=== PATIENT | female | born 1980 | race Caucasian/White ===

== ENCOUNTER → 2020-01-15 09:45 | Outpatient (CLI) | payer SELFPAY | LOC: MTDU 09:45 | PROVIDERS: PCP Family Medicine; Referring Provider Physician Assistant; Visit Provider Physician Assistant | DX: Z11.59 Encounter for screening for other viral diseases (principal) | CPT/HCPCS: 87635; 94799; U0003 ==

== ENCOUNTER 2021-04-29 11:08 | Emergency (ER) | payer MEDICAID, SELFPAY ==
[2021-04-29 11:09] VITALS: BP 149/103; PULSE 109; RESP 18; TEMP 36.8; O2SAT 95; BMI 32.8
--- NOTE | 2021-04-29 11:53 | EDS_ITS ---
HPI History of Present Illness Chief Complaint: Shortness of Breath Informant: patient Narrative Narrative: 40-year-old female history of asthma states that she tested positive for Covid yesterday at home. She states that she went to do a virtual visit with her primary care doctor and the triage nurse recommended she come to emergency. She is also brought her to parents up to emergency as well. She notes fever and a nonproductive cough. She has had some posttussive emesis and diarrhea. [facility] Medical History (Updated 04/29/21 @ 11:[address] Brent Beltran DO) Asthma Home Medications albuterol sulfate [Ventolin HFA] 2 puff INHALATION Q4H PRN PRN #1 inhaler 04/29/21 [Rx Last Taken Unknown] benzonatate 200 mg PO TID PRN PRN #30 capsule 04/29/21 [Rx Last Taken Unknown] dexamethasone 6 mg PO DAILY #7 tab 04/29/21 [Rx Last Taken Unknown] Allergy/AdvReac Type Severity Reaction Status Date / Time No Known Allergies Allergy Verified 04/29/21 11:11 Social History (Updated 04/29/21 @ 11:[address] Brent Beltran DO) current gender identity: female substance use type: does not use ROS ROS ED Constitutional Constitutional ED: Reports chills and fever(s); Denies weight loss Eyes Eyes: Denies change in vision or diplopia ENT ENT ED: Reports rhinorrhea; Denies ear pain or sore throat Cardiovascular Cardiovascular: Denies chest pain, orthopnea, palpitations or racing heartbeat Respiratory/Chest Respiratory/Chest: Reports cough and dyspnea; Denies orthopnea Gastrointestinal Gastrointestinal: Reports diarrhea, nausea and vomiting; Denies abdominal pain Genitourinary Genitourinary ED: Denies dysuria, hematuria or urinary frequency Musculoskeletal Musculoskeletal: Reports myalgias; Denies arthralgias Integumentary Denies abscess or rash Neurologic Neurologic: Reports headache(s); Denies weakness Psychiatric Psychiatric: Denies anxiety, depression, suicidal ideation or suicidal thoughts Endocrine Endocrinology: Denies polydipsia, polyphagia or polyuria Allergic/Immunologic Allergic/Immunologic ED: Denies mouth swelling, tongue swelling or urticaria EXAM Physical Exam Narrative Exam Narrative: Dry cough Const Vital Signs: 04/29/21 11:09 Temperature 98.3 F Temperature Source Temporal Pulse Rate 109 H Respiratory Rate 18 Blood Pressure 149/103 H Blood Pressure Mean 118 Pulse Ox 95 Oxygen Delivery Method Room Air Positive well nourished and well developed General Appearance ED: well developed HEENT Reports normocephalic, head/scalp atraumatic and moist mucous membranes; Denies TM's clear atraumatic Tympanic Membrane ED: Negative for TM's clear Eyes PERRL and EOMs intact bilaterally Neck no lymphadenopathy, supple and no JVD Resp normal respiratory effort and clear to auscultation bilaterally Cardio regular rate, regular rhythm and no murmurs GI normal to inspection, nondistended, normoactive bowel sounds, non-tender and non-distended Auscultation: normoactive bowel sounds Palpation: soft Back/Spine no CVA tenderness and normal ROM Extremity normal to inspection General Extremety ED: Negative for edema General Extremity: Negative for edema Neuro oriented x3 and CN's II-XII intact bilaterally Sensorium / Orientation: alert Motor Exam: strength 5/5 throughout Psych mental status grossly normal Mood & Affect: Negative for depressed or tearful Skin no rashes or lesions noted and no wounds MDM MDM MDM Narrative Medical decision making narrative: Patient clinically appears to be a well Covid patient. He is 95% on room air. She has no expiratory wheezing. She is not interested in monoclonal antibodies. She would like some Tessalon Perles and a new inhaler as she cannot find her other one. She would also probably benefit from some dexamethasone with her history of asthma. Discharge Plan Triage Chief Complaint: Shortness of Breath ED Provider: Brent Beltran Dx/Rx/DC Orders Clinical Impression: COVID-19, Asthma Instructions: Coronavirus Disease 2019 (COVID-19): Caring for Yourself or Others Prescriptions: New dexamethasone 6 MG tablet 6 mg PO DAILY Qty: 7 RF: 0 benzonatate [benzonatate] 100 MG capsule 200 mg PO TID PRN PRN (Reason: Cough) Qty: 30 RF: 0 albuterol sulfate [Ventolin HFA] 1 INHALER inhaler 2 puff inhalation Q4H PRN PRN (Reason: Wheezing) Qty: 1 RF: 0 Primary Care Provider: Ronald Headley Referrals: Ronald Headley MD [Primary Care Provider] - As Needed Disposition Disposition: Home, Self Care
[2021-04-29 12:13] VITALS: O2SAT 96
== END 2021-04-29 12:15 | disposition home or self-care (01) ==
LOC: ED 12:04
PROVIDERS: Emergency Provider Emergency Medicine; PCP Family Medicine
DX: U07.1 COVID-19 (principal); J45.909 Unspecified asthma, uncomplicated
CPT/HCPCS: 99282

== ENCOUNTER 2021-05-08 07:53 | Inpatient (IN) | payer MEDICAID, SELFPAY ==
[2021-05-08] VITALS (16 sets, daily range): BP systolic 116–164; BP diastolic 73–96; PULSE 53–120; RESP 18–95; TEMP 35.9–37.8; O2SAT 91–99; BMI 32.8; BMI 30.2
[2021-05-08 08:29] LABS: Absolute Neutrophil Count 8.3 X10^3/uL (2.0-7.7); Basophil# 0.02 X10^3/uL; Basophil% 0.2 % (0-1); Hematocrit 43.5 % (37-47); Hemoglobin 14.5 g/dL (12.0-15.0); Lymphocyte % 8.3 % (19-41); Mean Corp Hgb Conc 33.3 g/dL (32-36); Mean Corpuscular Hgb 28.8 pg (27.0-32.0); Mean Corpuscular Volume 86.3 fL (81-99); Mean Platelet Vol. 10.2 fl (6.2-12.0); Monocyte# 0.52 X10^3/uL; Monocyte% 5.4 % (0-10); NRBC Flagged by Analyzer 0 % (0-5); Neutrophil # 8.31 X10^3/uL (2.7-7.7); Neutrophil % 85.8 % (47-70); Platelet Count 261 K/mm3 (150-450); RBC Distribution Width CV 12.5 % (11.6-14.6); RBC Distribution Width SD 39.4 fl (35.1-43.9); Red Blood Count 5.04 M/mm3 (4.2-5.4); White Blood Count 9.7 K/mm3 (4.4-11.0)
[2021-05-08 08:45] LABS: Anion Gap 10 (5-15); BUN 20 mg/dL (7-18); BUN/Creat Ratio 23.3 RATIO (10-20); Calcium,Total 9.3 mg/dL (8.5-10.1); Chloride 105 mmol/L (98-107); Creatinine, Serum 0.86 mg/dL (0.55-1.02); EST Glomerular Filtration Rate 78 mL/min (>60); Est Glom Filt Rate - Afr Amer 94 mL/min (>60); Estimated Creatinine Clearance 84.56 ml/min; Glucose 118 mg/dL (74-106); Potassium 3.8 mmol/L (3.5-5.1); Sodium Level 139 mmol/L (136-145)
--- NOTE | 2021-05-08 08:57 | RAD_ITS ---
STUDY: X-RAY CHEST REASON FOR EXAM: Female, 40 years old. Cough and shortness of breath. Chest pain. Covid positive TECHNIQUE: Single AP portable view of the chest. COMPARISON: None. FINDINGS: EKG electrodes are seen. Bilateral patchy infiltrates worse at the left base. Infiltrates are also seen in the peripheral aspect of the right hemithorax. There is no demonstrated pleural abnormality. Normal size heart. Normal mediastinum and devi. Normal visualized pulmonary arteries. Normal visualized aortic arch and descending thoracic aorta. Normal visualized thoracic spine. Normal visualized ribs, clavicles, and shoulders. There is no demonstrated abnormality of the visualized soft tissue structures of the upper abdomen. RAD/Chest 1 View IMPRESSION: Bilateral pulmonary infiltrates worse at the left lung base. Infiltrates are also seen along the lateral aspect of the right hemithorax. Pneumonitis associated with Covid should be ruled out. Electronically Signed: John Apodaca MD at 9:23 EST , Service support ,
[2021-05-08 09:02] LABS: Lactic Acid 1.8 mmol/L (0.4-1.9)
--- NOTE | 2021-05-08 09:12 | CT_ITS ---
STUDY: CTA CHEST REASON FOR EXAM: Female, 40 years old. covid, CP RADIATION DOSAGE (If Supplied By Facility): CTDIvol = ( 16.17 ) mGy, DLP = ( 407.07 ) mGycm TECHNIQUE: The examination was performed with the intravenous administration of IV 100mL Isovue-370. Post-processing of the angiographic images was performed, with multiplanar reformation and 3D reconstruction. Individualized dose optimization techniques were used for this CT. COMPARISON: Comparison is made with prior chest radiograph done earlier today. FINDINGS: Small benign-appearing bilateral axillary lymph nodes. Normal enhancement of the main pulmonary artery and right and left pulmonary arteries. Normal enhancement of the bilateral peripheral pulmonary arteries. There is no demonstrated pulmonary embolism. Normal thoracic aorta and visualized great vessels. There is no demonstrated aortic dissection. Normal heart and pericardium. Normal mediastinum. Normal hilar regions. Normal visualized trachea and bronchi. The lungs are well expanded. There is evidence of diffuse bilateral pulmonary infiltrates worse in the posterior aspect of the right upper lobe as well as in both lower lobes. Normal pleura. Normal chest wall structures. Normal osseous structures. Normal visualized upper abdomen. CT/CTA Chest W/WO Contrast IMPRESSION: Diffuse bilateral pulmonary infiltrates. No evidence of pulmonary embolus. Electronically Signed: John Apodaca MD at 11:03 EST , Service support ,
--- NOTE | 2021-05-08 09:12 | EKG12_ITS ---
Test Reason : SOB Blood Pressure : / mmHG Vent. Rate : 097 BPM Atrial Rate : 097 BPM P-R Int : 150 ms QRS Dur : 080 ms QT Int : 400 ms P-R-T Axes : 057 027 038 degrees QTc Int : 508 ms Normal sinus rhythm Prolonged QT Abnormal ECG Confirmed by ANGELINA GALEANA, AFSHIN ([id number]), commissioning editor NGOZI THORPE ([id number]) on 05/10/2021 11:28:40 AM Referred By: CLAUDY Confirmed By:AFSHIN ALFARO MD
--- NOTE | 2021-05-08 09:20 | EDS_ITS ---
HPI History of Present Illness Chief Complaint: General Illness Informant: patient Onset/Context/Timing Onset: Days Context: Gradual Onset Current Severity: Moderate Maximum Severity: Moderate Narrative Narrative: Patient presents secondary to cough, shortness of breath, chest pain. She tested positive for Covid on April 28 and developed symptoms that same day. She does have a history of asthma. She has been using albuterol MDI inhaler along with Decadron, Tessalon Perles. Patient states her called the doctor this morning to get a refill on her medication but was advised that she go to the emergency room. She does report central chest pain that is heavy with occasional sharp pain. She is coughing up clear thick sputum. She is still having fevers into the 102 range. [facility] Medical History Asthma Home Medications albuterol sulfate [Ventolin HFA] 2 puff INHALATION Q4H PRN PRN #1 inhaler 04/29/21 [Rx Last Taken Unknown] benzonatate 200 mg PO TID PRN PRN #30 capsule 04/29/21 [Rx Last Taken Unknown] dexamethasone 6 mg PO DAILY #7 tab 04/29/21 [Rx Last Taken Unknown] Allergy/AdvReac Type Severity Reaction Status Date / Time No Known Allergies Allergy Verified 05/08/21 07:57 Social History Smoking Status: Unknown if ever smoked substance use type: does not use ROS ROS ED Constitutional Constitutional ED: Reports fever(s) Eyes Eyes: Denies blurry vision or change in vision ENT ENT ED: Denies rhinorrhea or sore throat Cardiovascular Cardiovascular: Reports chest pain, palpitations and racing heartbeat Respiratory/Chest Respiratory/Chest: Reports cough, dyspnea and sputum Gastrointestinal Gastrointestinal: Denies abdominal pain or vomiting Musculoskeletal Musculoskeletal: Reports myalgias Integumentary Denies rash Neurologic Neurologic: Reports weakness Psychiatric Psychiatric: Reports anxiety; Denies depression Endocrine Endocrinology: Denies polydipsia or polyuria Allergic/Immunologic Allergic/Immunologic ED: Denies urticaria EXAM Physical Exam Const Vital Signs: 05/08/21 07:55 05/08/21 08:37 05/08/21 08:42 Temperature 96.7 F L 96.7 F L Temperature Source Temporal Temporal Pulse Rate 53 L 53 L 93 Respiratory Rate 18 18 33 H Blood Pressure 129/85 H 129/85 H 116/86 H Blood Pressure Mean 99 99 96 Pulse Ox 91 91 91 Oxygen Delivery Method Room Air Room Air Room Air 05/08/21 08:43 05/08/21 09:18 05/08/21 10:18 Temperature 97 F L Temperature Source Temporal Pulse Rate 120 H 93 Respiratory Rate 33 H 38 H Blood Pressure 117/82 H 116/89 H Blood Pressure Mean 93 98 Pulse Ox 91 94 95 Oxygen Delivery Method Room Air 05/08/21 12:13 Temperature Temperature Source Pulse Rate 86 Respiratory Rate 38 H Blood Pressure 129/95 H Blood Pressure Mean 106 Pulse Ox 94 Oxygen Delivery Method Room Air Positive well nourished and well developed General Appearance ED: well developed Eyes PERRL and EOMs intact bilaterally Neck supple Chest Wall inspection of chest normal and palpation of chest normal Resp Auscultation: diminished lung sounds Cardio Rate: tachycardic GI non-tender Palpation: soft Extremity normal to inspection Neuro oriented x3 Sensorium / Orientation: alert Skin no rashes or lesions noted MDM MDM MDM Narrative Medical decision making narrative: Patient was placed on oxygen for comfort. EKG, lab work, CTA chest obtained. Lab Data Attestation: I reviewed the patient's lab results. Labs: Laboratory Results - last 24 hr 05/08/21 05/08/21 05/08/21 08:15 08:15 08:15 WBC 9.7 RBC 5.04 Hgb 14.5 Hct 43.5 MCV 86.3 MCH 28.8 MCHC 33.3 RDW Std Deviation 39.4 RDW Coeff of Bruce 12.5 Plt Count 261 MPV 10.2 Immature Gran % (Auto) 0.300 Neut % (Auto) 85.8 H Lymph % (Auto) 8.3 L [place] % (Auto) 5.4 Eos % (Auto) 0.0 Baso % (Auto) 0.2 Absolute Neuts (auto) 8.3 H Absolute Lymphs (auto) 0.80 L Nucleated RBC % 0 Sodium 139 Potassium 3.8 Chloride 105 Carbon Dioxide 24.0 Anion Gap 10 BUN 20 H Creatinine 0.86 Estim Creat Clear Calc 84.56 Est GFR (MDRD) Af Amer 94 Est GFR (MDRD) Non-Af 78 BUN/Creatinine Ratio 23.3 H Glucose 118 H Lactic Acid 1.8 Calcium 9.3 Troponin I High Sens 05/08/21 08:15 WBC RBC Hgb Hct MCV MCH MCHC RDW Std Deviation RDW Coeff of Bruce Plt Count MPV Immature Gran % (Auto) Neut % (Auto) Lymph % (Auto) [place] % (Auto) Eos % (Auto) Baso % (Auto) Absolute Neuts (auto) Absolute Lymphs (auto) Nucleated RBC % Sodium Potassium Chloride Carbon Dioxide Anion Gap BUN Creatinine Estim Creat Clear Calc Est GFR (MDRD) Af Amer Est GFR (MDRD) Non-Af BUN/Creatinine Ratio Glucose Lactic Acid Calcium Troponin I High Sens 3 Radiography Chest X-Ray - ED: 1 View, Read by ED Physician, Right Infiltrate and Left Infiltrate Diagnostic Testing: Clinical Impression(s) from Imaging Studies Chest X-Ray 05/08/21 08:57 IMPRESSION: Bilateral pulmonary infiltrates worse at the left lung base. Infiltrates are also seen along the lateral aspect of the right hemithorax. Pneumonitis associated with Covid should be ruled out. Electronically Signed: John Apodaca MD at 9:23 EST , Service support , Chest CTA 05/08/21 09:12 IMPRESSION: Diffuse bilateral pulmonary infiltrates. No evidence of pulmonary embolus. Electronically Signed: John Apodaca MD at 11:03 EST , Service support , EKG Initial EKG: Attestation: I personally reviewed and interpreted this EKG as follows: Interpretation: Sinus Rhythm (Sinus at 97. No acute ST change.) Treatment and Re-Evaluation Comments:: With coughing and agitation patient's respiratory rate goes up into the low 40s, heart rate goes up around 150 with sinus tach and PACs. With rest and control of cough heart rate is in the 80s and 90s. Test results discussed with the patient. CTA reveals bilateral infiltrates but no evidence of PE. She was taken off of oxygen and maintain sat around 92% on room air while sitting at rest. She ambulated to the restroom and back. On arrival back to the room O2 sat was 82% and heart rate elevated again in the 1 30-1 50 range. She is placed back on nasal cannula and is currently satting in the 90s. She will be given another small dose of Robitussin-AC to help with cough. I will speak with hospitalist regarding admission. Discharge Plan Triage Chief Complaint: General Illness ED Provider: Jacklyn Pugh Dx/Rx/DC Orders Clinical Impression: COVID-19, Tachycardia Prescriptions: No Action dexamethasone 6 MG tablet 6 mg PO DAILY Qty: 7 RF: 0 benzonatate [benzonatate] 100 MG capsule 200 mg PO TID PRN PRN (Reason: Cough) Qty: 30 RF: 0 albuterol sulfate [Ventolin HFA] 1 INHALER inhaler 2 puff inhalation Q4H PRN PRN (Reason: Wheezing) Qty: 1 RF: 0 Primary Care Provider: Ronald Headley Referrals: Ronald Headley MD [Primary Care Provider] - Disposition Disposition: Acute Care Hospital [facility]
[2021-05-08 09:35] LABS: Troponin-I HS 3 pg/mL (3.0-54.0)
[2021-05-08] MEDS: guaiFENesin/Codeine 5 ML UDC 10 ML PO ×3 (09:36→21:16)
[2021-05-08] MEDS: guaiFENesin/Codeine 5 ML UDC PO (12:44)
--- NOTE | 2021-05-08 14:22 | HP.PCM.HOS_ITS ---
HPI - General General Date of Admission: 05/08/21 HPI Narrative NICK VILLALOBOS, is a 40 F with recent diagnosis of Covid tested positive at home on 04/28/2021 was seen in ED on 04/29 for fever and nonproductive cough, posttussive emesis and diarrhea was sent home on Decadron. At that time her pulse ox was 95% on room air. She has history of asthma since childhood but was controlled prior to Covid and had to use 5 times in the whole 1 year. Many members in the family are infected with Covid including her father who is admitted here, her mother and kids got better. She came to ER with worsening of shortness of breath, tachycardia mainly on exertion only when talking, vomiting and diarrhea and respiratory distress. She also reported constant upper central chest pain for last 1 day which is sharp in quality without radiation. She brings up clear thick sputum. Fever at home was high 102 Fahrenheit. She had vomiting and diarrhea until yesterday. In ED, her heart rate was high from 80s to 120 to 140/min during conversation and mild exertion. Denies dysuria or recent lower urinary tract symptoms. Her pulse ox was 82 on room air. She had chest x-ray and CTA which was negative for PE but shows multifocal diffuse bilateral pulmonary infiltrates. [facility] Medical History Asthma Home Medications albuterol sulfate [Ventolin HFA] 2 puff INHALATION Q4H PRN PRN #1 inhaler 04/29/21 [Rx Last Taken Unknown] benzonatate 200 mg PO TID PRN PRN #30 capsule 04/29/21 [Rx Last Taken Unknown] dexamethasone 6 mg PO DAILY #7 tab 04/29/21 [Rx Last Taken Unknown] amlodipine 10 mg PO DAILY 05/08/21 [History Last Taken Unknown] Allergy/AdvReac Type Severity Reaction Status Date / Time No Known Allergies Allergy Verified 05/08/21 07:57 Social History Smoking Status: Unknown if ever smoked substance use type: does not use ROS ROS Narrative Constitutional: Reports fatigue and weakness, short of breath HEENT: Reports systems reviewed and no addt'l complaints, except as documented Respiratory/Chest: As mentioned in HPI Gastrointestinal: Denies coffee ground emesis, hematemesis or melena Genitourinary: Denies burning urination or new urinary tract symptoms Musculoskeletal: Has diffuse muscle aches and pain Neurologic: Denies seizure-like activity. No headache skin: No ulcer. No rash Endocrinology: Reports systems reviewed and no addt'l complaints, except as documented Hematologic/Lymphatic: Reports systems reviewed and no addt'l complaints, except as documented Rest 12 ROS are negative except as mentioned in HPI Vital Signs Vital Signs Vital Signs: 05/08/21 07:55 05/08/21 08:37 05/08/21 08:42 Temperature 96.7 F L 96.7 F L Temperature Source Temporal Temporal Pulse Rate 53 L 53 L 93 Respiratory Rate 18 18 33 H Blood Pressure 129/85 H 129/85 H 116/86 H Blood Pressure Mean 99 99 96 Pulse Ox 91 91 91 Oxygen Delivery Method Room Air Room Air Room Air Oxygen Flow Rate (L/min) 05/08/21 08:43 05/08/21 09:18 05/08/21 10:18 Temperature 97 F L Temperature Source Temporal Pulse Rate 120 H 93 Respiratory Rate 33 H 38 H Blood Pressure 117/82 H 116/89 H Blood Pressure Mean 93 98 Pulse Ox 91 94 95 Oxygen Delivery Method Room Air Oxygen Flow Rate (L/min) 05/08/21 12:13 05/08/21 13:39 Temperature 98.9 F Temperature Source Oral Pulse Rate 86 96 Respiratory Rate 38 H 20 H Blood Pressure 129/95 H 131/96 H Blood Pressure Mean 106 107 Pulse Ox 94 97 Oxygen Delivery Method Room Air Nasal Cannula Oxygen Flow Rate (L/min) 4 Weight Weight: 210 lb Body Mass Index (BMI) 32.8 Physical Exam Narrative General: Alert, Oriented x3, Cooperative HEENT: Atraumatic, PERRLA, EOMI, Normocephalic Oral: Oral mucosa dry. No Gingival or Mucosal Lesions/ Ulcerations Neck: Supple, No JVD, Negative Carotid Bruits Lungs: Air entry diminished in bilateral lungs. Bilateral wheezing present. Cardiovascular: Intermittent sinus tachycardia on exertion, normal S1, Normal S2, No murmurs Abdomen: Bowel Sounds Present, Soft, Non Tender, Non-Distended : No renal angle tenderness. No suprapubic tenderness. Extremities: No edema, Capillary Refill Less than 3 Seconds Skin: No rashes, No breakdown Musculoskeletal: No Tenderness to Palpation of Joints or Extremities Neurological: Cranial nerves II-XII grossly intact, DTR 2+/4 and Symmetrical, Neuro grossly intact Psych/Mental Status: Flat affect Results Lab / Micro Data Result Diagrams: 05/08/21 08:15 05/08/21 08:15 Labs: Laboratory Results - last 24 hr 05/08/21 08:15: WBC 9.7, RBC 5.04, Hgb 14.5, Hct 43.5, MCV 86.3, MCH 28.8, MCHC 33.3, RDW Std Deviation 39.4, RDW Coeff of Bruce 12.5, Plt Count 261, MPV 10.2, Immature Gran % (Auto) 0.300, Neut % (Auto) 85.8 H, Lymph % (Auto) 8.3 L, [place] % (Auto) 5.4, Eos % (Auto) 0.0, Baso % (Auto) 0.2, Absolute Neuts (auto) 8.3 H, Absolute Lymphs (auto) 0.80 L, Nucleated RBC % 0 05/08/21 08:15: Lactic Acid 1.8 05/08/21 08:15: Sodium 139, Potassium 3.8, Chloride 105, Carbon Dioxide 24.0, Anion Gap 10, BUN 20 H, Creatinine 0.86, Estim Creat Clear Calc 84.56, Est GFR (MDRD) Af Amer 94, Est GFR (MDRD) Non-Af 78, BUN/Creatinine Ratio 23.3 H, Glucose 118 H, Calcium 9.3 05/08/21 08:15: Troponin I High Sens 3 Radiology Impression Chest X-Ray 05/08/21 08:57 IMPRESSION: Bilateral pulmonary infiltrates worse at the left lung base. Infiltrates are also seen along the lateral aspect of the right hemithorax. Pneumonitis associated with Covid should be ruled out. Electronically Signed: John Apodaca MD at 9:23 EST , Service support , Chest CTA 05/08/21 09:12 IMPRESSION: Diffuse bilateral pulmonary infiltrates. No evidence of pulmonary embolus. Electronically Signed: John Apodaca MD at 11:03 EST , Service support , Assessment & Plan Assessment/Plan (1) COVID-19: PLAN: 1. Acute hypoxic respiratory failure secondary to bilateral COVID- 19 pneumonia: Patient is being admitted in PCU. Patient is already on Decadron and continued. Started on remdesivir. Inflammatory markers ordered. CTPA negative for PE. Oxygen therapy to keep pulse ox 92%. Mucinex and Tessalon Perles. If patient needs airflow, BiPAP or high oxygen requirement, will need ID consult for baricitinib. 2. Acute asthma exacerbation from bilateral COVID-19 pneumonia: On a steroid. Bronchodilator as needed patient gets tachycardia. IV fluid Ringer lactate patient is dehydrated. Incentive spirometry and Pep. 3. Sinus tachycardia probably from pulmonary infection/pneumonia: It is intermittent due to dyspnea on exertion. Avoid beta-arjun. Cardizem as needed to control heart rate. VT prophylaxis, moderate to high risk: Lovenox 40 mg subcu twice daily Full code. Discussed with the patient Charges/Coding Visit Charges Inpatient E&M: 10088 Init Hosp L3
--- NOTE | 2021-05-08 15:08 | NURSING ---
pt previously admitted to ER aand most pf admission work done in their unit
--- NOTE | 2021-05-08 15:24 | NURSING ---
CPS made aware of pt need for duoneb per order
[2021-05-08] MEDS: Lactated Ringers 1,000 ML 100 ML IV (15:44)
[2021-05-08] MEDS: Ipratropium/Albuterol Sulfate 3 ML AMPUL.NEB INHALATION ×2 (16:02→19:58)
--- NOTE | 2021-05-08 19:29 | PCS.PANDOC ---
PANDEMIC DOCUMENTATION INITIATED: Date: 05/08/2021 Time: 1500
[2021-05-08] MEDS: dilTIAZem 60 MG Tablet PO (21:15)
[2021-05-08] MEDS: Acetaminophen 325 MG Tablet 650 MG PO (21:33)
[2021-05-08] MEDS: guaiFENesin 600 MG Tablet PO (21:34)
[2021-05-09] VITALS (19 sets, daily range): BP systolic 102–121; BP diastolic 58–92; PULSE 65–140; RESP 12–26; TEMP 36.3–37.2; O2SAT 92–96
[2021-05-09] MEDS: guaiFENesin/Codeine 5 ML UDC 10 ML PO ×6 (00:36→20:52)
--- NOTE | 2021-05-09 01:33 | EKG12_ITS ---
Test Reason : SOB Blood Pressure : / mmHG Vent. Rate : 129 BPM Atrial Rate : 170 BPM P-R Int : 000 ms QRS Dur : 090 ms QT Int : 330 ms P-R-T Axes : 000 014 -04 degrees QTc Int : 483 ms Atrial fibrillation Abnormal ECG Confirmed by ANGELINA GALEANA, AFSHIN ([id number]), editor continuity and script NGOZI THORPE ([id number]) on 05/10/2021 12:26:08 PM Referred By: Confirmed By:AFSHIN ALFARO MD
[2021-05-09] MEDS: Ipratropium/Albuterol Sulfate 3 ML AMPUL.NEB INHALATION ×4 (02:06→19:42)
[2021-05-09] MEDS: Enoxaparin 30 MG/0.3 ML Syringe SC (02:23)
[2021-05-09] MEDS: Benzonatate 100 MG Capsule 200 MG PO ×4 (02:23→16:17)
[2021-05-09] MEDS: dexAMETHasone 2 MG TABLET 6 MG PO (02:23)
[2021-05-09 02:52] LABS: Absolute Lymphocyte Count 1.57 X10^3/uL (0.83-4.51); Absolute Neutrophil Count 6.2 X10^3/uL (2.0-7.7); Basophil# 0.02 X10^3/uL; Basophil% 0.2 % (0-1); Eosinophil# 0.01 X10^3/uL; Eosinophils% 0.1 % (0-5); Hematocrit 38.2 % (37-47); Lymphocyte # 1.57 X10^3/ul (0.83-4.51); Lymphocyte % 18.8 % (19-41); Mean Corpuscular Hgb 28.8 pg (27.0-32.0); Mean Corpuscular Volume 84.7 fL (81-99); Mean Platelet Vol. 10.3 fl (6.2-12.0); Monocyte# 0.46 X10^3/uL; Monocyte% 5.5 % (0-10); NRBC Flagged by Analyzer 0 % (0-5); Neutrophil # 6.24 X10^3/uL (2.7-7.7); Neutrophil % 74.8 % (47-70); POSITIVE MORPHOLOGY YES; Platelet Count 238 K/mm3 (150-450); RBC Distribution Width CV 12.3 % (11.6-14.6); Red Blood Count 4.51 M/mm3 (4.2-5.4); White Blood Count 8.4 K/mm3 (4.4-11.0)
[2021-05-09 03:02] LABS: Differential Indicated SCAN CRITERIA MET
[2021-05-09 03:05] LABS: International Normalized Ratio 1.1; Prothrombin Time (Protime)PT. 13.2 SECONDS (11.7-14.9)
[2021-05-09 03:13] LABS: Fibrinogen 520 mg/dl (203-444)
[2021-05-09 03:21] LABS: ALB/GLOB Ratio 0.6 RATIO (0.9-2.4); AST(SGOT) 28 U/L (15-37); Alanine Aminotransfer ALT/SGPT 16 U/L (13-56); Albumin, Serum 2.7 g/dL (3.2-5.0); Alkaline Phosphatase 58 U/L (45-117); Anion Gap 8 (5-15); BUN 14 mg/dL (7-18); BUN/Creat Ratio 22.6 RATIO (10-20); Calcium,Total 8.5 mg/dL (8.5-10.1); Chloride 104 mmol/L (98-107); Creatinine, Serum 0.62 mg/dL (0.55-1.02); EST Glomerular Filtration Rate 113 mL/min (>60); Est Glom Filt Rate - Afr Amer 137 mL/min (>60); Estimated Creatinine Clearance 117.29 ml/min; Globulin 4.6 g/dL (2.2-4.2); Glucose 105 mg/dL (74-106); Magnesium 2.2 mg/dL (1.6-2.6); Phosphorus 2.7 mg/dL (2.5-4.9); Potassium 3.1 mmol/L (3.5-5.1); Protein, Total 7.3 g/dL (6.4-8.2); Sodium Level 139 mmol/L (136-145)
[2021-05-09 03:26] LABS: D-Dimer Quantitative (DVT/PE) 1.53 FEU/ug/m (0.27-0.49)
[2021-05-09 03:27] LABS: CPK Total, Creatine Kinase 158 U/L (26-192); LDH 335 U/L (84-246)
[2021-05-09 03:28] LABS: Procalcitonin 0.16 ng/mL (0.00-0.09)
[2021-05-09 03:33] LABS: Atypical Lymphocyte 1+ %
[2021-05-09] MEDS: dilTIAZem 60 MG Tablet PO (05:40)
--- NOTE | 2021-05-09 07:50 | CON.PCM.CA_ITS ---
Assessment & Plan Assessment/Plan (1) Afib: PLAN: Patient presents with atrial fibrillation in the face of COVID-19 infection. At this time overall patient appears to be hemodynamically stable. Patient is anticoagulated due to the underlying condition. I would recommend that we continue the same. As you know this is not unusual with COVID-19 infections and may actually represent a demand activity. * I would recommend switching to beta-arjun with metoprolol 50 mg twice a day. * Would like to observe heart rate for now and hold off from any intravenous agents at this particular time. * Will hold off on echocardiographic evaluation as it would not private branch exchange operator at this particular time. * * Thank you for allowing me to participate in the care of your patient. Please don't hesitate to call if any issues arise. HPI Consult Data Date of Consult: 05/09/21 HPI Narrative HPI Narrative: NICK VILLALOBOS, is a 40 F who presents with recent diagnosis of Covid tested positive at home on 04/28/2021 was seen in ED on 04/29 for fever and nonproductive cough, posttussive emesis and diarrhea was sent home on Decadron. At that time her pulse ox was 95% on room air. She has history of asthma since childhood but was controlled prior to Covid and had to use 5 times in the whole 1 year. She came to ER with worsening of shortness of breath, tachycardia mainly on exer tion only when talking, vomiting and diarrhea and respiratory distress. She also reported constant upper central chest pain for last 1 day which is sharp in quality without radiation. In ED, her heart rate was high from 80s to 120 to 140/min during conversation and mild exertion. Denies dysuria or recent lower urinary tract symptoms. Her pulse ox was 82 on room air. She had chest x-ray and CTA which was negative for PE but shows multifocal diffuse bilateral pulmonary infiltrates. She was noted to be in atrial fibrillation with a rapid ventricular response rate. Was started on anticoagulation and p.o. diltiazem. Heart rate still appears to be uncontrolled. [facility] Medical History Asthma Home Medications albuterol sulfate [Ventolin HFA] 2 puff INHALATION Q4H PRN PRN #1 inhaler 04/29/21 [Rx Last Taken Unknown] benzonatate 200 mg PO TID PRN PRN #30 capsule 04/29/21 [Rx Last Taken Unknown] dexamethasone 6 mg PO DAILY #7 tab 04/29/21 [Rx Last Taken Unknown] amlodipine 10 mg PO DAILY 05/08/21 [History Last Taken Unknown] Allergy/AdvReac Type Severity Reaction Status Date / Time No Known Allergies Allergy Verified 05/08/21 07:57 Social History Smoking Status: Unknown if ever smoked substance use type: does not use ROS Constitutional Constitutional: Denies fever(s) or weight loss Eyes Eyes: Reports systems reviewed and no addt'l complaints, except as documented ENT HEENT: Reports systems reviewed and no addt'l complaints, except as documented Cardiovascular Cardiovascular: Denies chest pain at rest, chest pain with activity, dyspnea at rest, dyspnea on exertion, edema, palpitations or paroxysmal nocturnal dyspnea Respiratory/Chest Respiratory/Chest: Denies dyspnea on exertion, productive cough, shortness of breath at rest or shortness of breath with exertion Gastrointestinal Gastrointestinal: Denies change in bowel habits, nausea, vomiting or weight changes Genitourinary Genitourinary: Denies difficulty urinating Musculoskeletal Musculoskeletal: Denies joint stiffness or muscle weakness Integumentary Integumentary: Denies lesions Neurologic Neurologic: Denies dizziness or syncope Psychiatric Psychiatric: Denies anxiety Endocrine Endocrinology: Denies excessive sweating or fatigue Hematologic/Lymphatic Hematologic/Lymphatic: Denies anemia Allergic/Immunologic Allergic/Immunologic: Denies seasonal rhinorrhea Risk Stratification Risk Stratification Applicable: No Objective Data Vital Signs: Vital Signs Temp Pulse Resp BP Pulse Ox 99.0 F 104 H 18 106/75 94 05/09/21 05:35 05/09/21 06:58 05/09/21 06:58 05/09/21 05:35 05/09/21 06:58 Oxygen Flow Rate (L/min) 1 Oxygen Delivery Method Nasal Cannula Weight: 192 lb 14.472 oz Body Mass Index (BMI) 30.2 Intake & Output: Intake and Output for Last 24 Hours 05/07/21 05/08/21 05/09/21 23:59 23:59 23:59 Intake Total 1698.33 / 1698.33 Balance 1698.33 / 1698.33 Lab / Micro Data Result Diagrams: 05/09/21 02:35 05/09/21 02:35 Labs: Laboratory Results - last 24 hr 05/08/21 08:15: WBC 9.7, RBC 5.04, Hgb 14.5, Hct 43.5, MCV 86.3, MCH 28.8, MCHC 33.3, RDW Std Deviation 39.4, RDW Coeff of Bruce 12.5, Plt Count 261, MPV 10.2, Immature Gran % (Auto) 0.300, Neut % (Auto) 85.8 H, Lymph % (Auto) 8.3 L, Sherman % (Auto) 5.4, Eos % (Auto) 0.0, Baso % (Auto) 0.2, Absolute Neuts (auto) 8.3 H, Absolute Lymphs (auto) 0.80 L, Nucleated RBC % 0 05/08/21 08:15: Lactic Acid 1.8 05/08/21 08:15: Sodium 139, Potassium 3.8, Chloride 105, Carbon Dioxide 24.0, Anion Gap 10, BUN 20 H, Creatinine 0.86, Estim Creat Clear Calc 84.56, Est GFR (MDRD) Af Amer 94, Est GFR (MDRD) Non-Af 78, BUN/Creatinine Ratio 23.3 H, Glucose 118 H, Calcium 9.3 05/08/21 08:15: Troponin I High Sens 3 05/08/21 16:10: COVID-19 (EDUARDO) Not Detected 05/09/21 02:35: PT 13.2, INR 1.1, Fibrinogen 520 H, D-Dimer Quant (PE/DVT) 1.53 H* 05/09/21 02:35: Lactate Dehydrogenase 335 H, Total Creatine Kinase 158, C-React Prot Ext Range 90.30 H 05/09/21 02:35: Procalcitonin 0.16 H 05/09/21 02:35: WBC 8.4, RBC 4.51, Hgb 13.0, Hct 38.2, MCV 84.7, MCH 28.8, MCHC 34.0, RDW Std Deviation 38.0, RDW Coeff of Bruce 12.3, Plt Count 238, MPV 10.3, Immature Gran % (Auto) 0.600, Neut % (Auto) 74.8 H, Lymph % (Auto) 18.8 L, Sherman % (Auto) 5.5, Eos % (Auto) 0.1, Baso % (Auto) 0.2, Absolute Neuts (auto) 6.2, Absolute Lymphs (auto) 1.57, Nucleated RBC % 0, Atypical Lymphocytes 1+ 05/09/21 02:35: Sodium 139, Potassium 3.1 L, Chloride 104, Carbon Dioxide 27.0, Anion Gap 8, BUN 14, Creatinine 0.62, Estim Creat Clear Calc 117.29, Est GFR (MDRD) Af Amer 137, Est GFR (MDRD) Non-Af 113, BUN/Creatinine Ratio 22.6 H, Glucose 105, Calcium 8.5, Phosphorus 2.7, Magnesium 2.2, Total Bilirubin 0.40, AST 28, ALT 16, Alkaline Phosphatase 58, Total Protein 7.3, Albumin 2.7 L, Globulin 4.6 H, Albumin/Globulin Ratio 0.6 L Micro: Microbiology 05/08/21 16:10 Mucosa - Nasopharyngeal Respiratory Panel (PCR) - Final Cardiology Labs/Tests 05/08/21 08:15: WBC 9.7, RBC 5.04, Hgb 14.5, Hct 43.5, MCV 86.3, MCH 28.8, MCHC 33.3, Plt Count 261, MPV 10.2, Immature Gran % (Auto) 0.300, Neut % (Auto) 85.8 H, Lymph % (Auto) 8.3 L, Sherman % (Auto) 5.4, Eos % (Auto) 0.0, Baso % (Auto) 0.2, Absolute Neuts (auto) 8.3 H, Nucleated RBC % 0 05/08/21 08:15: Lactic Acid 1.8 05/08/21 08:15: Sodium 139, Potassium 3.8, Chloride 105, Carbon Dioxide 24.0, Anion Gap 10, BUN 20 H, Creatinine 0.86, Est GFR (MDRD) Af Amer 94, Est GFR (MDRD) Non-Af 78, BUN/Creatinine Ratio 23.3 H, Glucose 118 H, Calcium 9.3 05/09/21 02:35: PT 13.2, INR 1.1, D-Dimer Quant (PE/DVT) 1.53 H* 05/09/21 02:35: WBC 8.4, RBC 4.51, Hgb 13.0, Hct 38.2, MCV 84.7, MCH 28.8, MCHC 34.0, Plt Count 238, MPV 10.3, Immature Gran % (Auto) 0.600, Neut % (Auto) 74.8 H, Lymph % (Auto) 18.8 L, Sherman % (Auto) 5.5, Eos % (Auto) 0.1, Baso % (Auto) 0.2, Absolute Neuts (auto) 6.2, Nucleated RBC % 0 05/09/21 02:35: Sodium 139, Potassium 3.1 L, Chloride 104, Carbon Dioxide 27.0, Anion Gap 8, BUN 14, Creatinine 0.62, Est GFR (MDRD) Af Amer 137, Est GFR (MDRD) Non-Af 113, BUN/Creatinine Ratio 22.6 H, Glucose 105, Calcium 8.5, Phosphorus 2.7, Magnesium 2.2, Total Bilirubin 0.40 Rhythm: EKG: ECHO: Stress Test: Cardiac Cath: PCI: CT Surgery: Holter monitor: EPS: PPM: CXR: Chest CT Scan: Radiography Diagnostic Testing: Radiology Impression Chest X-Ray 05/08/21 08:57 IMPRESSION: Bilateral pulmonary infiltrates worse at the left lung base. Infiltrates are also seen along the lateral aspect of the right hemithorax. Pneumonitis associated with Covid should be ruled out. Electronically Signed: John Apodaca MD at 9:23 EST , Service support , Chest CTA 05/08/21 09:12 IMPRESSION: Diffuse bilateral pulmonary infiltrates. No evidence of pulmonary embolus. Electronically Signed: John Apodaca MD at 11:03 EST , Service support ,
[2021-05-09] MEDS: guaiFENesin 600 MG Tablet PO ×2 (08:02→20:53)
[2021-05-09] MEDS: Metoprolol Tartrate 50 MG Tablet PO ×2 (08:02→20:53)
[2021-05-09] MEDS: Enoxaparin 100 MG/ML Syringe 90 MG SC ×2 (10:39→20:52)
--- NOTE | 2021-05-09 10:53 | PN.HOSP_ITS ---
Subjective Subjective Patient alert A. RVR and patient support associate was consulted. Semiautomatic Stitcher Operator saw the patient in the morning. On metoprolol 50 mg twice daily. His symptoms are better than yesterday. Objective Data Objective Data Vital Signs: Vital Signs Temp Pulse Resp BP Pulse Ox 97.5 F L 76 24 H 104/58 L 94 05/09/21 10:05 05/09/21 10:05 05/09/21 10:05 05/09/21 10:05 05/09/21 10:05 Oxygen Flow Rate (L/min) 3 Oxygen Delivery Method Nasal Cannula Weight: 192 lb 14.472 oz Body Mass Index (BMI) 30.2 Intake & Output: Intake and Output for Last 24 Hours 05/07/21 05/08/21 05/09/21 23:59 23:59 23:59 Intake Total 1698.33 / 1698.33 Balance 1698.33 / 1698.33 Lab / Micro Data Result Diagrams: 05/09/21 02:35 05/09/21 02:35 Labs: Laboratory Results - last 24 hr 05/08/21 16:10: COVID-19 (EDUARDO) Not Detected 05/09/21 02:35: PT 13.2, INR 1.1, Fibrinogen 520 H, D-Dimer Quant (PE/DVT) 1.53 H* 05/09/21 02:35: Lactate Dehydrogenase 335 H, Total Creatine Kinase 158, C-React Prot Ext Range 90.30 H 05/09/21 02:35: Procalcitonin 0.16 H 05/09/21 02:35: WBC 8.4, RBC 4.51, Hgb 13.0, Hct 38.2, MCV 84.7, MCH 28.8, MCHC 34.0, RDW Std Deviation 38.0, RDW Coeff of Bruce 12.3, Plt Count 238, MPV 10.3, Immature Gran % (Auto) 0.600, Neut % (Auto) 74.8 H, Lymph % (Auto) 18.8 L, Mathews % (Auto) 5.5, Eos % (Auto) 0.1, Baso % (Auto) 0.2, Absolute Neuts (auto) 6.2, Absolute Lymphs (auto) 1.57, Nucleated RBC % 0, Atypical Lymphocytes 1+ 05/09/21 02:35: Sodium 139, Potassium 3.1 L, Chloride 104, Carbon Dioxide 27.0, Anion Gap 8, BUN 14, Creatinine 0.62, Estim Creat Clear Calc 117.29, Est GFR (MDRD) Af Amer 137, Est GFR (MDRD) Non-Af 113, BUN/Creatinine Ratio 22.6 H, Glucose 105, Calcium 8.5, Phosphorus 2.7, Magnesium 2.2, Total Bilirubin 0.40, AST 28, ALT 16, Alkaline Phosphatase 58, Total Protein 7.3, Albumin 2.7 L, Globulin 4.6 H, Albumin/Globulin Ratio 0.6 L Micro: Microbiology 05/08/21 16:10 Mucosa - Nasopharyngeal Respiratory Panel (PCR) - Final Radiography Diagnostic Testing: Radiology Impression Chest CTA 05/08/21 09:12 IMPRESSION: Diffuse bilateral pulmonary infiltrates. No evidence of pulmonary embolus. Electronically Signed: John Apodaca MD at 11:03 EST , Service support , Physical Exam Narrative General: Mild lethargy but awake. HEENT: Atraumatic, PERRLA, EOMI, Normocephalic Oral: No Gingival or Mucosal Lesions/ Ulcerations Neck: Supple, No JVD, Negative Carotid Bruits Lungs: Air entry diminished in bilateral lungs. No wheezing but expiratory rhonchi. Cardiovascular: A. fib, normal S1, Normal S2, No murmurs Abdomen: Bowel Sounds Present, Soft, Non Tender, Non-Distended : No renal angle tenderness. No suprapubic tenderness. Extremities: No edema, Capillary Refill Less than 3 Seconds Skin: No rashes, No breakdown Musculoskeletal: No Tenderness to Palpation of Joints or Extremities Neurological: Cranial nerves II-XII grossly intact, DTR 2+/4 and Symmetrical, Neuro grossly intact Psych/Mental Status: Flat affect Assessment & Plan Assessment/Plan (1) COVID-19: PLAN: 1. Acute hypoxic respiratory failure secondary to bilateral COVID- 19 pneumonia: Patient is being admitted in PCU. Patient is already on Decadron and continued. Started on remdesivir. Inflammatory markers ordered. CTPA negative for PE. Oxygen therapy to keep pulse ox 92%. Mucinex and Tessalon Perles. If patient needs airflow, BiPAP or high oxygen requirement, will need ID consult for baricitinib. 2. 05/09: A. fib with RVR most likely from COVID-19/asthma exacerbation: Patient seen by patient support associate. Patient started on metoprolol 50 mg twice daily. Hold off on echocardiogram. Patient is on full therapeutic dose of enoxaparin as anticoagulation for A. fib. 3. Acute asthma exacerbation from bilateral COVID-19 pneumonia: On a steroid. Bronchodilator as needed patient gets tachycardia. IV fluid Ringer lactate completed and discontinued. Incentive spirometry and Pep. Air entry and exchange is better. VT prophylaxis, moderate to high risk: Full therapeutic dose of enoxaparin Full code. Discussed with the patient Charges/Coding Visit Charges Inpatient E&M: 78505 Subs Hosp L2
[2021-05-09] MEDS: Acetaminophen 325 MG Tablet 650 MG PO (12:40)
--- NOTE | 2021-05-09 16:00 | CASEMGMT ---
RN JOSELIN PILLOWCASE SEWER CM spoke with patient for initial transition planning/care coordination assessment. CHANDRAKANT OLIVERA introduced self and role at [facility]. Pt voices understanding and consents to assessment at this time. Pt is A/O at this time and answers all questions appropriately. Care providers, pharmacy, and demographics verified/updated at this time. COVID testing done @ Home 04/28 and was +. Pt re-checked @ [facility] 05/08 and was negative. PCP: Dr Headley Specialists: None Preferred Pharmacy: [facility] Insurance: [facility] Prescription Benefit: Living Will/HPOA: Pt does not currently have LW/HCPOA LNOK: , Ghulam Living Arrangements: Lives w/ and 5-yr-old daughter in 2-story home. FFSU. 1 step to enter home. Independent. is ill w/COVID-still having cough and fever. 5-yr-old is better. Pt's father is currently admitted @ [facility] in PCU w/COVID. Pt's mother is home and just getting over COVID. It pt's worsens and needs to be hospitalized, pt's mother is able to take care of their daughter. Transportation: Pt states drives self and states no transportation concerns at this time. also drives DME: They have a pulse ox, thermometer, and incentive spirometer. Pt aware of possible need for O2 @ discharge and that [facility] is only DME co in-network w/her insurance. Reviewed Home O2 set-up process, in the event she needs O2 @ d/c. HHC/SNF: No hx of either. Denies need for HHC. Pt wishes to return home and states has no concerns with going home at time of discharge. CM to follow for home oxygen needs and any further discharge planning/needs. Pt voices no further concerns/needs at this time. Advised pt to ask for CM if any further questions/concerns/needs arise. Voices understanding. PLAN: Home. Follow for possible need of Home O2 @ discharge Hector FALCON RN, CM
[2021-05-10] VITALS (12 sets, daily range): BP systolic 103–113; BP diastolic 56–76; PULSE 69–81; RESP 14–22; TEMP 36.4–36.6; O2SAT 87–93
[2021-05-10] MEDS: guaiFENesin Dm 10 ML UDC PO ×4 (02:22→15:14)
[2021-05-10] MEDS: Ipratropium/Albuterol Sulfate 3 ML AMPUL.NEB INHALATION ×3 (02:25→13:24)
[2021-05-10 07:23] LABS: Absolute Lymphocyte Count 1.05 X10^3/uL (0.83-4.51); Hematocrit 39.4 % (37-47); Hemoglobin 12.8 g/dL (12.0-15.0); Lymphocyte # 1.05 X10^3/ul (0.83-4.51); Lymphocyte % 18.9 % (19-41); Mean Corp Hgb Conc 32.5 g/dL (32-36); Mean Corpuscular Hgb 28.3 pg (27.0-32.0); Mean Platelet Vol. 10.5 fl (6.2-12.0); Monocyte# 0.49 X10^3/uL; Monocyte% 8.8 % (0-10); NRBC Flagged by Analyzer 0 % (0-5); Neutrophil # 3.97 X10^3/uL (2.7-7.7); Neutrophil % 71.4 % (47-70); POSITIVE MORPHOLOGY YES; Platelet Count 285 K/mm3 (150-450); RBC Distribution Width CV 12.4 % (11.6-14.6); RBC Distribution Width SD 39.8 fl (35.1-43.9); Red Blood Count 4.53 M/mm3 (4.2-5.4); White Blood Count 5.6 K/mm3 (4.4-11.0)
[2021-05-10 07:28] LABS: Differential Indicated SCAN CRITERIA MET
[2021-05-10 08:00] LABS: ALB/GLOB Ratio 0.6 RATIO (0.9-2.4); AST(SGOT) 17 U/L (15-37); Alanine Aminotransfer ALT/SGPT 17 U/L (13-56); Albumin, Serum 2.6 g/dL (3.2-5.0); Alkaline Phosphatase 52 U/L (45-117); Anion Gap 9 (5-15); BUN 19 mg/dL (7-18); BUN/Creat Ratio 29.1 RATIO (10-20); Calcium,Total 8.8 mg/dL (8.5-10.1); Chloride 105 mmol/L (98-107); Creatinine, Serum 0.65 mg/dL (0.55-1.02); EST Glomerular Filtration Rate 106 mL/min (>60); Est Glom Filt Rate - Afr Amer 129 mL/min (>60); Estimated Creatinine Clearance 111.88 ml/min; Globulin 4.5 g/dL (2.2-4.2); Glucose 115 mg/dL (74-106); Potassium 3.2 mmol/L (3.5-5.1); Protein, Total 7.1 g/dL (6.4-8.2); Sodium Level 140 mmol/L (136-145)
[2021-05-10] MEDS: Enoxaparin 100 MG/ML Syringe 90 MG SC (08:19)
[2021-05-10] MEDS: Benzonatate 100 MG Capsule 200 MG PO ×2 (08:20→11:05)
[2021-05-10 08:21] LABS: Reactive Lymphocyte RARE
[2021-05-10] MEDS: dexAMETHasone 2 MG TABLET 6 MG PO (08:21)
[2021-05-10] MEDS: Metoprolol Tartrate 50 MG Tablet PO (08:21)
[2021-05-10] MEDS: guaiFENesin 600 MG Tablet PO (08:21)
--- NOTE | 2021-05-10 09:34 | PCM.DC ---
Discharge Instructions Diet Discharge Diet: Low fat / Low cholesterol Activity Discharge Activity: May Not Drive Additional Activity Instructions:: Self quarantine until 05/18/2021 Dressing / Incision Call your doctor if you observe: Fever of 101 or Higher, Coldness, Increased Pain, Numbness or Tingling, Change in Color, Inability to urinate, Inability to have a bowel movement, Shortness of breath, Dizziness, Fainting spells, Swelling in the ankles, Chest pain, Prolonged hiccupping, Increased palpitations (irregular heartbeat) and Calf discomfort Follow Up Care Test Results: Test results from this visit will be discussed in further detail at your follow-up appointment, if applicable. Discharge Plan Admission Admit Date/Time: 05/08/21 14:13 Primary Reason for Your Visit: Bilateral COVID-19 pneumonia, A. fib with RVR Attending Provider: Silvano Goodson Primary Care Provider: Ronald Headley Consulting Providers: Pool Paz Discharge Orders/Prescriptions Prescriptions: New metoprolol tartrate 50 mg Tablet 50 mg PO BID Qty: 60 RF: 0 guaifenesin [Mucus Relief ER] 600 mg Tablet Extended Release 12hr 600 mg PO BID Qty: 14 RF: 0 potassium chloride 20 mEq tablet extended release 40 meq PO DAILY Qty: 6 RF: 0 Eliquis 2.5 mg tablet 2.5 mg PO BID Qty: 30 RF: 0 Continued benzonatate 100 MG capsule 200 mg PO TID PRN PRN (Reason: Cough) Qty: 30 RF: 0 albuterol sulfate [Ventolin HFA] 1 INHALER inhaler 2 puff inhalation Q4H PRN PRN (Reason: Wheezing) Qty: 1 RF: 0 amlodipine 10 mg tablet 10 mg PO DAILY RF: 0 dexamethasone 6 MG tablet 6 mg PO DAILY Qty: 5 RF: 0 Referrals / Follow Up: Ronald Headley MD [Primary Care Provider] - Within 1 Week (May need pulmonary follow-up for PFT evaluation.) Pool Paz MD [STAFF PHYSICIAN] - Within 1 Month (For transient A. fib with RVR during hospital course. May need echo as an outpatient) Disposition Disposition (needs filled in before D/C Order can be placed): Home, Self Care
--- NOTE | 2021-05-10 09:37 | PCM.DC.SUM ---
Providers Date of Admission: 05/08/21 Primary Care Physician: Dr. Ronald Headley MD Consultations 05/09/21 06:44 Consult: Cardiology Routine Consulting Provider: Pool Paz Reason for Consult: NEW ONSET AFIB EMERGENT Consult: Yes MD Notified: Yes Date Notified: 05/09/21 Time Notified: 06:45 Method of Notification: Text Reason For Visit: COVID 19 PNEUMONIA Diagnosis Discharge Diagnosis (1) COVID-19: Status: Acute Code(s): U07.1 - COVID-19 Medications at Discharge Home Medications albuterol sulfate [Ventolin HFA] 2 puff INHALATION Q4H PRN PRN #1 inhaler 04/29/21 amlodipine 10 mg PO DAILY 05/08/21 apixaban [Eliquis] 2.5 mg PO BID #30 tab 05/10/21 benzonatate 200 mg PO TID PRN PRN #30 capsule 05/10/21 dexamethasone 6 mg PO DAILY #5 tab 05/10/21 guaifenesin [Mucus Relief ER] 600 mg PO BID #14 tab 05/10/21 metoprolol tartrate 50 mg PO BID #60 tab 05/10/21 potassium chloride 40 meq PO DAILY #6 tab 05/10/21 Hospital Course Summary of Care Provided Hospital Course: This 40-year-old female was admitted for symptoms of cough, shortness of breath, fever, posttussive emesis and diarrhea intermittently since 04/27. She was tested positive at home on 04/28/2021 1. Acute hypoxic respiratory failure secondary to bilateral COVID-19 pneumonia: Patient was admitted in PCU. Patient is already on Decadron and continued. Was started on remdesivir. CTPA negative for PE. Oxygen therapy to keep pulse ox 92%. Mucinex and Tessalon Perles. Telemetry markers were elevated. Patient improved and currently pulse ox 93% on room air and requires 2 L on ambulation. Patient is ambulatory in home and in the community and requires home oxygen with portability. 2. On 05/09: A. fib with RVR most likely from COVID-19/asthma exacerbation: Patient seen by neuroscience director na. Patient started on metoprolol 50 mg twice daily. Hold off on echocardiogram. Patient was started on full dose anticoagulant, enoxaparin for A. fib. Patient converted to sinus rhythm on same day. Patient is discharged on metoprolol 50 mg twice daily and Eliquis 2.5 mg DVT prophylaxis dose for 2 weeks. Follow-up with Dr. Paz as an outpatient for 2D echo. 3. Acute asthma exacerbation from bilateral COVID-19 pneumonia: Asthma exacerbation resolved. O Bronchodilator as needed patient gets tachycardia. Continue incentive spirometry and Pep. Prescription given for Decadron. Discharge medication reconciliation done. Discharge follow-up instructions completed. Discharge process discussed with the patient and all questions were answered to patient's satisfaction. Total time spent, exact 35 minutes on discharge meds reconciliation, examination, coordination of care with nurses and ancillary staff, review of imaging and blood test and discussion with the patient on follow-up instructions Physical Exam Narrative Seen and examined patient cough and shortness of breath is better. Pulse ox 93% on room air. 92% on 2 L of oxygen on ambulation. Sinus rhythm General: Mild lethargy but awake. HEENT: Atraumatic, PERRLA, EOMI, Normocephalic Oral: No Gingival or Mucosal Lesions/ Ulcerations Neck: Supple, No JVD, Negative Carotid Bruits Lungs: Air entry diminished in bilateral lungs. No wheezing but expiratory rhonchi. Cardiovascular: Converted to sinus rhythm, normal S1, Normal S2, No murmurs Abdomen: Bowel Sounds Present, Soft, Non Tender, Non-Distended : No renal angle tenderness. No suprapubic tenderness. Extremities: No edema, Capillary Refill Less than 3 Seconds Skin: No rashes, No breakdown Musculoskeletal: No Tenderness to Palpation of Joints or Extremities Neurological: Cranial nerves II-XII grossly intact, DTR 2+/4 and Symmetrical, Neuro grossly intact Psych/Mental Status: Flat affect Weight / BMI Weight Weight: 192 lb 14.472 oz Body Mass Index (BMI) 30.2 ABG / Lab / Microbiology Data Result Diagrams: 05/10/21 06:57 05/10/21 06:57 Laboratory: Laboratory Results - last 24 hr 05/10/21 06:57: WBC 5.6, RBC 4.53, Hgb 12.8, Hct 39.4, MCV 87.0, MCH 28.3, MCHC 32.5, RDW Std Deviation 39.8, RDW Coeff of Bruce 12.4, Plt Count 285, MPV 10.5, Immature Gran % (Auto) 0.900, Neut % (Auto) 71.4 H, Lymph % (Auto) 18.9 L, [place] % (Auto) 8.8, Eos % (Auto) 0.0, Baso % (Auto) 0.0, Absolute Neuts (auto) 4.0, Absolute Lymphs (auto) 1.05, Nucleated RBC % 0, Reactive Lymphocytes RARE 05/10/21 06:57: Sodium 140, Potassium 3.2 L, Chloride 105, Carbon Dioxide 26.0, Anion Gap 9, BUN 19 H, Creatinine 0.65, Estim Creat Clear Calc 111.88, Est GFR (MDRD) Af Amer 129, Est GFR (MDRD) Non-Af 106, BUN/Creatinine Ratio 29.1 H, Glucose 115 H, Calcium 8.8, Total Bilirubin 0.40, AST 17, ALT 17, Alkaline Phosphatase 52, Total Protein 7.1, Albumin 2.6 L, Globulin 4.5 H, Albumin/Globulin Ratio 0.6 L Microbiology: Microbiology 05/09/21 14:30 Urine, Clean Catch Legionella Antigen - Final 05/09/21 14:30 Urine, Clean Catch Streptococcus pneumoniae Antigen (M - Final 05/08/21 16:10 Mucosa - Nasopharyngeal Respiratory Panel (PCR) - Final D/C Instructions Discharge Diet: Low fat / Low cholesterol Additional Activity Instructions: Self quarantine until 05/18/2021 Call your doctor if you observe: Fever of 101 or Higher, Coldness, Increased Pain, Numbness or Tingling, Change in Color, Inability to urinate, Inability to have a bowel movement, Shortness of breath, Dizziness, Fainting spells, Swelling in the ankles, Chest pain, Prolonged hiccupping, Increased palpitations (irregular heartbeat) and Calf discomfort Meaningful Use Info Meaningful Use Diagnoses (Choose all that apply): None applicable Discharge Plan Admission Admit Date/Time: 05/08/21 14:13 Primary Reason for Your Visit: Bilateral COVID-19 pneumonia, A. fib with RVR Attending Provider: Silvano Goodson Primary Care Provider: Ronald Headley Consulting Providers: Pool Paz Discharge Orders/Prescriptions Prescriptions: New metoprolol tartrate 50 mg Tablet 50 mg PO BID Qty: 60 RF: 0 guaifenesin [Mucus Relief ER] 600 mg Tablet Extended Release 12hr 600 mg PO BID Qty: 14 RF: 0 potassium chloride 20 mEq tablet extended release 40 meq PO DAILY Qty: 6 RF: 0 Eliquis 2.5 mg tablet 2.5 mg PO BID Qty: 30 RF: 0 Continued albuterol sulfate [Ventolin HFA] 1 INHALER inhaler 2 puff inhalation Q4H PRN PRN (Reason: Wheezing) Qty: 1 RF: 0 amlodipine 10 mg tablet 10 mg PO DAILY RF: 0 dexamethasone 6 MG tablet 6 mg PO DAILY Qty: 5 RF: 0 benzonatate 100 MG capsule 200 mg PO TID PRN PRN (Reason: Cough) Qty: 30 RF: 0 Referrals / Follow Up: Pool Paz MD [STAFF PHYSICIAN] - Within 1 Month (For transient A. fib with RVR during hospital course. May need echo as an outpatient) Ronald Headley MD [Primary Care Provider] - Within 1 Week (May need pulmonary follow-up for PFT evaluation.) Disposition Disposition (needs filled in before D/C Order can be placed): Home, Self Care Charges/Coding Visit Charges Inpatient E&M: 87052 Disch Hosp
--- NOTE | 2021-05-10 10:15 | CASEMGMT ---
Addendum entered by Rachelle Almeida 05/10/21 13:31: CHANDRAKANT OLIVERA called [facility] and confirmed that they received order and will call back with estimated time of delivery. Addendum entered by Rachelle Almeida 05/10/21 12:06: CHANDRAKANT OLIVERA called [facility] to inquire about oxygen delivery. Per Olena there is no order. CHANDRAKANT OLIVERA confirmed that fax was sent at [phone]. CHANDRAKANT OLIVERA refaxed referral for home oxygen order and received fax confirmation that referral went through. Original Note: CHANDRAKANT OLIVERA updated that patient qualifies for home oxygen with ambulation. Referral made to [facility] community plan's preferred provider. CHANDRAKANT OLIVERA called and updated patient in room regarding home oxygen setup. Patient had no questions at this time. Awaiting call back from [facility] with estimated time or delivery.
[2021-05-10] MEDS: Potassium Chloride Oral Tablet 20 MEQ 40 MEQ PO (11:05)
--- NOTE | 2021-05-10 15:37 | CASEMGMT ---
CHANDRAKANT OLIVERA called and spoke to Josseline at [facility] [phone] option1, then option 2. Josseline states that it shows that the tank is in route and will be delivered shortly. CHANDRAKANT OLIVERA updated nurse regarding oxygen update.
== END 2021-05-10 17:52 | disposition home or self-care (01) | DRG 137 ==
LOC: ED 12:28 → MS2 14:39
PROVIDERS: Admitting Provider Internal Medicine; Emergency Provider Emergency Medicine; PCP Family Medicine; Visit Provider Internal Medicine
DX: U07.1 COVID-19 (principal); J12.82 Pneumonia due to coronavirus disease 2019; J45.901 Unspecified asthma with (acute) exacerbation; J96.01 Acute respiratory failure with hypoxia; I48.91 Unspecified atrial fibrillation; I49.1 Atrial premature depolarization; R00.0 Tachycardia, unspecified
CPT/HCPCS: 36415; 71045; 71275; 80048; 80053; 82550; 83605; 83615; 83735; 84100; 84145; 84484; 85025; 85379; 85384; 85610; 86140; 87040; 87449; 87633; 87635; 93005; 94640; 94668; 94760; 99285; J7120; Q9967; U0005; A4216; U0003

== ENCOUNTER 2021-12-17 15:38 | Emergency (ER) | payer BC, MEDICAID, SELFPAY ==
[2021-12-17 15:39] VITALS: BP 200/138; PULSE 109; RESP 22; TEMP 36.8; O2SAT 99; BMI 31.8
--- NOTE | 2021-12-17 15:46 | EKG12_ITS ---
Test Reason : cp Blood Pressure : / mmHG Vent. Rate : 091 BPM Atrial Rate : 091 BPM P-R Int : 164 ms QRS Dur : 084 ms QT Int : 378 ms P-R-T Axes : 058 028 042 degrees QTc Int : 464 ms Normal sinus rhythm Normal ECG Confirmed by ANGELINA GALEANA, AFSHIN ([id number]), editor managing director NGOZI THORPE ([id number]) on 12/19/2021 11:29:21 AM Referred By: Confirmed By:AFSHIN ALFARO MD
[2021-12-17 16:05] VITALS: BP 164/108; PULSE 95; RESP 20; O2SAT 99
--- NOTE | 2021-12-17 16:10 | EDS_ITS ---
HPI History of Present Illness Chief Complaint: Chest Pain Detail of Chief Complaint: Chest discomfort and shortness of breath Informant: patient Narrative Narrative: Patient presents to the emergency department with complaint of shortness of breath and chest discomfort that she thinks may have been a panic attack. Patient states that she was having some family drama and she was crying and then felt like she could not breathe. Patient then got numbness and tingling in her left arm and that she could not feel her body. Patient has never had a episode like that before. On arrival to the ER she feels significantly improved. She still complains of some mild pressure in her chest and some mild numbness and tingling in the left arm. Patient has history of hypertension but does not always take her blood pressure medicine. She is on amlodipine 10 mg at night. Patient denies recent travel or surgery. Patient tells me she was on apixaban in April for COVID related issues and she was on it for about a month. No history of PE or DVT. [facility] Medical History Asthma Home Medications amlodipine 10 mg tablet 10 mg PO DAILY 05/08/21 [History Last Taken Unknown] lorazepam 1 mg tablet (Ativan) 1 mg PO TID PRN anxiety #10 tabs 12/17/21 [Rx Las t Taken Unknown] Allergy/AdvReac Type Severity Reaction Status Date / Time No Known Allergies Allergy Verified 12/17/21 15:39 Social History Smoking Status: Never smoker substance use type: does not use ROS ROS ED Review of Systems ROS Unobtainable: other Constitutional Constitutional ED: Reports lethargy; Denies chills, fever(s), sweats or weight loss Eyes Eyes: Denies blurry vision, change in vision or diplopia ENT ENT ED: Denies rhinorrhea or sore throat Cardiovascular Cardiovascular: Reports chest pain and racing heartbeat; Denies orthopnea Respiratory/Chest Respiratory/Chest: Reports dyspnea and dyspnea on exertion; Denies cough, orthopnea or sputum Gastrointestinal Gastrointestinal: Denies abdominal pain, diarrhea, nausea or vomiting Genitourinary Genitourinary ED: Denies dysuria, hematuria or urinary frequency Musculoskeletal Musculoskeletal: Denies arthralgias, back pain, myalgias or neck pain Integumentary Denies abscess, Abrasions or rash Neurologic Neurologic: Reports paresthesias; Denies headache(s) or weakness Psychiatric Psychiatric: Denies anxiety, depression or suicidal thoughts Endocrine Endocrinology: Denies polydipsia, polyphagia or polyuria Hematologic/Lymphatic Hematologic/Lymphatic: Denies easy bleeding, easy bruising or lymphadenopathy Allergic/Immunologic Allergic/Immunologic ED: Denies mouth swelling, tongue swelling or urticaria EXAM Physical Exam Const Vital Signs: 12/17/21 15:39 12/17/21 16:05 12/17/21 16:05 Temperature 98.2 F Temperature Source Temporal Pulse Rate 109 H 95 Respiratory Rate 22 H 20 H Blood Pressure 200/138 H 164/108 H Blood Pressure Mean 158 126 Pulse Ox 99 99 Oxygen Delivery Method Room Air Room Air 12/17/21 16:11 12/17/21 16:41 12/17/21 17:28 Temperature Temperature Source Pulse Rate 95 86 Respiratory Rate 14 Blood Pressure 153/101 H 149/101 H Blood Pressure Mean 118 117 Pulse Ox 98 Oxygen Delivery Method Room Air Room Air Positive well nourished and well developed General Appearance ED: well developed and NAD HEENT Reports TM's clear and moist mucous membranes normocephalic and atraumatic; Negative for trauma or tenderness Tympanic Membrane ED: Yes TM's clear Eyes PERRL and EOMs intact bilaterally General Eye ED: Negative for pale conjunctiva or scleral icterus Neck no lymphadenopathy, supple and no JVD General: Negative for tenderness Chest Wall inspection of chest normal and palpation of chest normal Chest: Negative for tenderness Resp normal respiratory effort and clear to auscultation bilaterally Effort and Inspection: Negative for respiratory distress or pain with movement Auscultation: Negative for rhonchi, wheezes or diminished lung sounds Cardio regular rate, regular rhythm, S1 normal heart sound, S2 normal heart sound and no murmurs Peripheral Pulses: pulses 2+ throughout GI normal to inspection, nondistended, normoactive bowel sounds, soft to palpation, non-tender, non-distended and no masses Back/Spine no CVA tenderness and no thoracic nor lumbar tenderness Extremity normal to inspection General Extremety ED: Negative for edema General Extremity: Negative for edema Neuro oriented x3, CN's II-XII intact bilaterally, no sensory deficits noted and gait normal Sensorium / Orientation: awake, alert, oriented to person, oriented to place and oriented to time Motor Exam: strength 5/5 throughout and strength abnormal Psych mental status grossly normal Skin no rashes or lesions noted and no wounds MDM MDM MDM Narrative Medical decision making narrative: IV line established on arrival. Patient received Ativan 1 mg IV. Patient received a dose of her amlodipine. Her symptoms essentially resolved. Lab work-up was normal. Troponin and D-dimer were normal. Chest x-ray was normal. At this point I suspect likely stress response/anxiety. I will write her prescription for Ativan as needed. Patient to follow-up with her primary care physician within next 5 to 7 days. Lab Data Attestation: I reviewed the patient's lab results. Labs: Laboratory Results - last 24 hr 12/17/21 12/17/21 12/17/21 16:00 16:00 16:00 WBC 9.7 RBC 5.05 Hgb 14.8 Hct 45.0 MCV 89.1 MCH 29.3 MCHC 32.9 RDW Std Deviation 40.0 RDW Coeff of Bruce 12.2 Plt Count 274 MPV 10.3 Immature Gran % (Auto) 0.100 Neut % (Auto) 63.6 Lymph % (Auto) 28.6 [place] % (Auto) 5.1 Eos % (Auto) 2.1 Baso % (Auto) 0.5 Absolute Neuts (auto) 6.1 Absolute Lymphs (auto) 2.76 Nucleated RBC % 0 D-Dimer Quant (PE/DVT) 0.47 Sodium 138 Potassium 3.7 Chloride 107 Carbon Dioxide 27.0 Anion Gap 4 L BUN 14 Creatinine 0.77 Estim Creat Clear Calc 93.50 Est GFR (MDRD) Af Amer 106 Est GFR (MDRD) Non-Af 87 BUN/Creatinine Ratio 18.1 Glucose 113 H Calcium 9.4 Troponin I High Sens 5 Radiography Chest X-Ray - ED: 1 View Diagnostic Testing: Clinical Impression(s) from Imaging Studies Chest X-Ray 12/17/21 16:17 IMPRESSION: There are no acute findings. Electronically Signed: Prosper Nicole MD at 17:07 EDT , 1 view chest creatinine interpreted by myself no acute disease process. Radiology in agreement. EKG Initial EKG: Attestation: I personally reviewed and interpreted this EKG as follows: Comments: Sinus rhythm with a ventricular rate of 91 bpm with no acute ST segment changes Discharge Plan Triage Chief Complaint: Chest Pain ED Provider: Jovany Marte Dx/Rx/DC Orders Clinical Impression: Anxiety reaction Instructions: ED Anxiety Reaction Prescriptions: New lorazepam [Ativan] 1 mg tablet 1 mg PO TID PRN (Reason: anxiety) Qty: 10 0RF No Action amlodipine 10 mg tablet 10 mg PO DAILY Primary Care Provider: Ronald Headley Referrals: Ronald Headley MD [Primary Care Provider] - 5-7 Days Disposition Disposition: Home, Self Care
[2021-12-17 16:12] LABS: Absolute Lymphocyte Count 2.76 X10^3/uL (0.83-4.51); Absolute Neutrophil Count 6.1 X10^3/uL (2.0-7.7); Basophil# 0.05 X10^3/uL; Basophil% 0.5 % (0-1); Eosinophils% 2.1 % (0-5); Hemoglobin 14.8 g/dL (12.0-15.0); Lymphocyte # 2.76 X10^3/ul (0.83-4.51); Lymphocyte % 28.6 % (19-41); Mean Corp Hgb Conc 32.9 g/dL (32-36); Mean Corpuscular Hgb 29.3 pg (27.0-32.0); Mean Corpuscular Volume 89.1 fL (81-99); Mean Platelet Vol. 10.3 fl (6.2-12.0); Monocyte# 0.49 X10^3/uL; Monocyte% 5.1 % (0-10); NRBC Flagged by Analyzer 0 % (0-5); Neutrophil # 6.14 X10^3/uL (2.7-7.7); Neutrophil % 63.6 % (47-70); Platelet Count 274 K/mm3 (150-450); RBC Distribution Width CV 12.2 % (11.6-14.6); Red Blood Count 5.05 M/mm3 (4.2-5.4); White Blood Count 9.7 K/mm3 (4.4-11.0)
[2021-12-17] MEDS: LORazepam 2 MG/ML Syringe 1 MG IV (16:15)
[2021-12-17] MEDS: Aspirin 81 MG TAB.CHEW 324 MG PO (16:15)
--- NOTE | 2021-12-17 16:17 | RAD_ITS ---
STUDY: X-RAY CHEST REASON FOR EXAM: Female, 41 years old. CHEST PAIN chest pain TECHNIQUE: XR Chest 1 View COMPARISON: None FINDINGS: There is no demonstrated pleural abnormality. Normal size heart. Normal mediastinum and devi. Normal visualized pulmonary arteries. Normal visualized aortic arch and descending thoracic aorta. Normal visualized thoracic spine. Normal visualized ribs, clavicles, and shoulders. There is no demonstrated abnormality of the visualized soft tissue structures of the upper abdomen. RAD/Chest 1 View (Portable) IMPRESSION: There are no acute findings. Electronically Signed: Prosper Nicole MD at 17:07 EDT ,
[2021-12-17] MEDS: 0.9% Normal Saline 1,000 ML 150 ML IV (16:18)
[2021-12-17 16:31] LABS: Anion Gap 4 (5-15); BUN 14 mg/dL (7-18); BUN/Creat Ratio 18.1 RATIO (10-20); Calcium,Total 9.4 mg/dL (8.5-10.1); Chloride 107 mmol/L (98-107); Creatinine, Serum 0.77 mg/dL (0.55-1.02); EST Glomerular Filtration Rate 87 mL/min (>60); Est Glom Filt Rate - Afr Amer 106 mL/min (>60); Glucose 113 mg/dL (74-106); Potassium 3.7 mmol/L (3.5-5.1); Sodium Level 138 mmol/L (136-145); Troponin-I HS 5 pg/mL (3.0-54.0)
[2021-12-17 16:40] LABS: D-Dimer Quantitative (DVT/PE) 0.47 FEU/ug/m (0.27-0.49)
[2021-12-17] MEDS: amLODIPine 10 MG Tablet PO (16:40)
[2021-12-17 16:41] VITALS: BP 153/101; PULSE 95
[2021-12-17 17:28] VITALS: BP 149/101; PULSE 86; RESP 14; O2SAT 98
[2021-12-17 17:54] VITALS: BP 165/101; PULSE 84
== END 2021-12-17 17:55 | disposition home or self-care (01) ==
PROVIDERS: Emergency Provider Emergency Medicine; PCP Family Medicine; Visit Provider Emergency Medicine
DX: F41.1 Generalized anxiety disorder (principal); I10 Essential (primary) hypertension; J45.909 Unspecified asthma, uncomplicated; Z91.19 Patient's noncompliance with other medical treatment and regimen; Z86.16 Personal history of COVID-19; Z79.899 Other long term (current) drug therapy
CPT/HCPCS: 71045; 80048; 84484; 85025; 85379; 93005; 96361; 96374; 99284; A4216

== ENCOUNTER 2023-04-25 16:01 | Emergency (ER) | payer BC, SELFPAY ==
[2023-04-25 16:03] VITALS: BP 203/125; PULSE 81; RESP 18; TEMP 36.4; O2SAT 99; BMI 32.3
[2023-04-25 16:52] VITALS: BP 199/112
--- NOTE | 2023-04-25 16:53 | EKG12_ITS ---
Test Reason : Blood Pressure : / mmHG Vent. Rate : 073 BPM Atrial Rate : 073 BPM P-R Int : 164 ms QRS Dur : 090 ms QT Int : 430 ms P-R-T Axes : 061 018 031 degrees QTc Int : 473 ms Normal sinus rhythm Normal ECG Confirmed by FRANK GALEANA, ELIZABETH ([id number]), photography editor ANGIE BOWERS ([id number]) on 04/26/2023 9:36:38 AM Referred By: PHILOMENA Confirmed By:ELIZABETH MARIE MD
--- NOTE | 2023-04-25 16:54 | EX.ED.DYSGE1 ---
HPI History of Present Illness Chief Complaint: Numb/Ting Detail of Chief Complaint: Paresthesia, headache and noncompliance with blood pressure medication Informant: patient and spouse/S.O. Onset/Context/Timing Onset: Days (Seizures started on Saturday, April 22.) Context: Sudden Onset Timing: Intermittent Quality: Paresthesia Location: Bilateral face, upper and lower extremities Current Severity: Mild Maximum Severity: Moderate Worsened by: Thing specific Relieved by: Nothing specific Associated Symptoms Associated Symptoms: Nausea, headache Narrative Narrative: Patient is a 42-year-old female who has history of anxiety disorder and had similar presentation 1 to 1.5 years ago and diagnosed with anxiety. Patient discontinued her amlodipine 3+ weeks ago. She was recently seen by ophthalmology because of change in vision. [employer] recommended better blood pressure control. She states on amlodipine her pressure was 180 systolic. She presently denies headache. She does report blurred vision bilateral worse right than left. She denies loss of vision. She denies double vision. She denies ringing or ears or decreased hearing. She denies trouble with speech or swallowing. Presently she denies facial numbness but does report numbness lower right and left extremity i.e. legs. She denies chest discomfort, shortness of breath, nausea or vomiting. She denies illogic symptoms. Prior similar symptoms: Yes Recent Illness/Hospitalization: No PFSH PFSH Medical History Asthma COVID-19 Home Medications amlodipine 10 mg tablet 10 mg PO DAILY 05/08/21 [History Last Taken Unknown] lorazepam 1 mg tablet (Ativan) 1 mg PO TID PRN anxiety #10 tabs 12/17/21 [Rx Last Taken Unknown] hydrochlorothiazide 12.5 mg tablet 12.5 mg PO DAILY #30 tabs 04/25/23 [Rx Last Taken Unknown] lisinopril 10 mg tablet 10 mg PO DAILY #30 tabs 04/25/23 [Rx Last Taken Unknown] Allergy/AdvReac Type Severity Reaction Status Date / Time pineapple Allergy Intermediate Hives Verified 04/25/23 16:02 Social History (Updated 04/25/23 @ 16:[address] Naeem Ortega MD) household members: spouse and children Smoking Status: Never smoker substance use type: does not use ROS ROS ED Constitutional Constitutional ED: Denies chills, fever(s), subjective, sweats or weight loss Eyes Eyes: Reports blurry vision bilateral; Denies change in vision or diplopia ENT ENT ED: Denies ear pain, rhinorrhea or sore throat Cardiovascular Cardiovascular: Denies chest pain, palpitations or racing heartbeat Respiratory/Chest Respiratory/Chest: Denies cough, dyspnea or dyspnea on exertion Gastrointestinal Gastrointestinal: Denies abdominal pain, nausea or vomiting Genitourinary Genitourinary ED: Denies dysuria, hematuria, LMP (females 10-50) or urinary frequency Musculoskeletal Musculoskeletal: Denies arthralgias, back pain, myalgias or neck pain Integumentary Denies rash Neurologic Neurologic: Denies headache(s) or paresthesias Psychiatric Psychiatric: Denies anxiety or depression Endocrine Endocrinology: Denies cold intolerance or heat intolerance Hematologic/Lymphatic Hematologic/Lymphatic: Reports systems reviewed and no addt'l complaints, except as documented EXAM Physical Exam Const Vital Signs: 04/25/23 16:03 04/25/23 16:52 04/25/23 18:02 Temperature 97.6 F L Temperature Source Temporal Pulse Rate 81 89 Respiratory Rate 18 17 Blood Pressure 203/125 H 199/112 H 156/91 H Blood Pressure Mean 151 141 112 Pulse Ox 99 98 Oxygen Delivery Method Room Air Room Air 04/25/23 17:02 Temperature Temperature Source Pulse Rate Respiratory Rate 15 Blood Pressure Blood Pressure Mean Pulse Ox Oxygen Delivery Method Positive well nourished and well developed General Appearance ED: well developed and NAD; Negative for pallor HEENT Reports TM's clear and moist mucous membranes Tympanic Membrane ED: Yes TM's clear Eyes PERRL and EOMs intact bilaterally Eyes Narrative: There is no papilledema. Cup-to-disc ratio appears normal. Difficult seeing vessels without dilation. General Eye ED: Negative for pale conjunctiva or scleral icterus Neck no lymphadenopathy, supple and no JVD Chest Wall inspection of chest normal and palpation of chest normal Resp normal respiratory effort and clear to auscultation bilaterally Cardio regular rate, regular rhythm, S1 normal heart sound, S2 normal heart sound and no murmurs GI normal to inspection, nondistended, normoactive bowel sounds, non-tender, non-distended and no masses; Negative for hepatosplenomegaly Palpation: soft Back/Spine no CVA tenderness Extremity normal to inspection General Extremety ED: Negative for edema or tenderness General Extremity: Negative for edema Neuro oriented x3, CN's II-XII intact bilaterally and no sensory deficits noted Neuro Narrative: There is no dysmetria. DTRs 1+ bicep, brachialis, tricep, patella and ankle. There is no clonus or Babinski sign. Sensorium / Orientation: alert Motor Exam: strength 5/5 throughout Psych mental status grossly normal Skin no rashes or lesions noted, no wounds and skin turgor normal General Skin Exam: elasticity normal; Negative for jaundice or pallor MDM MDM MDM Narrative Medical decision making narrative: His blood pressure is markedly elevated. EKG was obtained to assess for LVH/ischemia. BMP to assess for renal function and if any evidence of endorgan dysfunction. Also UA looking for proteinuria and hematuria. Because of complaint of headache with unusual neurologic symptoms will obtain CT to rule out intracranial process i.e. hemorrhage or ischemic event. If readings remain elevated will initiate therapy in the emergency department. History & Record Review Discussion w/independent historian: Patient and Family Additional record(s) reviewed:: Prior ED visit (November of 2021 for asthma and April of 2021 for anxiety.) Lab Data Attestation: I reviewed the patient's lab results. Lab results narrative: Basic metabolic panel is unremarkable. Potassium is 3.4 which is insignificant. Urine reveals proteinuria and hematuria. Labs: Laboratory Results - last 24 hr 04/25/23 17:33 Sodium 141 Potassium 3.4 L Chloride 109 H Carbon Dioxide 29.0 Anion Gap 3 L BUN 14 Creatinine 0.89 Estim Creat Clear Calc 80.08 Est GFR (MDRD) Af Amer 89 Est GFR (MDRD) Non-Af 74 BUN/Creatinine Ratio 15.7 Glucose 103 Calcium 8.8 Urine Color Yellow Urine Clarity Clear Urine pH 7.0 Ur Specific [place] 1.015 Urine Protein 15 H Urine Glucose (UA) Normal Urine Ketones Negative Urine Occult Blood 250 H Urine Nitrite Negative Urine Bilirubin Negative Urine Urobilinogen Normal Ur Leukocyte Esterase Negative Urine RBC 5-10 SEEN Urine WBC 0 SEEN Ur Squamous Epith Cells 0-5 SEEN Urine Bacteria 0 SEEN Urine Mucus 0 SEEN Radiography Diagnostic Testing: Clinical Impression(s) from Imaging Studies Brain CT 04/25/23 17:30 IMPRESSION: No acute intracranial abnormality. Electronically Signed: Cody Cunningham MD at 17:56 EST , Head was reviewed by me and no obvious abnormalities noted. Report by radiologist was reviewed. EKG Initial EKG: Attestation: I personally reviewed and interpreted this EKG as follows: Interpretation: Sinus Rhythm (Rate is 73. EKG is normal. [place] intervals 164 ms. Cures duration 90 ms. QT duration 430 ms. [place] is normal.) Treatment and Re-Evaluation :: His blood pressure has improved markedly to 156/91 without intervention. Will start patient on antihypertensive meds. Will place her on lisinopril with hydrochlorothiazide. She is to have a pressure checked in 1 to 2 weeks. She was informed that she is spilling protein and blood in her urine and this may be due to poor blood pressure control. Discharge Plan Triage Chief Complaint: Numb/Ting ED Provider: Naeem Ortega Dx/Rx/DC Orders Clinical Impression: Hematuria, Headache, Proteinuria, Paresthesia of upper and lower extremities of both sides, Elevated blood pressure reading with diagnosis of hypertension Instructions: ED Hypertension, Established Prescriptions: New lisinopril 10 mg tablet 10 mg PO DAILY Qty: 30 0RF hydrochlorothiazide 12.5 mg tablet 12.5 mg PO DAILY Qty: 30 0RF No Action amlodipine 10 mg tablet 10 mg PO DAILY lorazepam [Ativan] 1 mg tablet 1 mg PO TID PRN (Reason: anxiety) Qty: 10 0RF Primary Care Provider: Geronimo Nava Referrals: NOT,DEFINED [Non-Staff] - Geronimo Nava PA [Primary Care Provider] - 1-2 Weeks Disposition Disposition: Home, Self Care
[2023-04-25 17:02] VITALS: RESP 15
--- NOTE | 2023-04-25 17:30 | CT_ITS ---
EXAMINATION : Head CT w/out contrast HISTORY : Cephalgia, paresthesia elevated blood pressure COMPARISON : None. TECHNIQUE : Multiple contiguous axial images were obtained from the skull base to the vertex without intravenous contrast. A radiation dose optimization technique was used for this scan. FINDINGS : The ventricles and sulci are normal in size. There is no evidence for acute intracranial hemorrhage, mass effect, or midline shift. There is no extra-axial fluid collection. There is normal carrillo-white differentiation, without CT evidence of acute ischemia or infarct. The skull base and calvarium are unremarkable. The orbits are unremarkable. The paranasal sinuses are clear. The mastoid air cells are well-aerated. The soft tissues are unremarkable. CT/Brain/Head without Contrast IMPRESSION: No acute intracranial abnormality. Electronically Signed: Cody Cunningham MD at 17:56 EST ,
[2023-04-25 17:44] LABS: Bacteria 0 SEEN /hpf (None Seen); Mucous, Urine 0 SEEN /hpf (<or=2+); White Blood Cells 0 SEEN /hpf (0-5)
[2023-04-25 18:02] VITALS: BP 156/91; PULSE 89; RESP 17; O2SAT 98
[2023-04-25 18:02] LABS: Anion Gap 3 (5-15); BUN 14 mg/dL (7-18); BUN/Creat Ratio 15.7 RATIO (10-20); Calcium,Total 8.8 mg/dL (8.5-10.1); Chloride 109 mmol/L (98-107); Creatinine, Serum 0.89 mg/dL (0.55-1.02); EST Glomerular Filtration Rate 74 mL/min (>60); Est Glom Filt Rate - Afr Amer 89 mL/min (>60); Estimated Creatinine Clearance 80.08 ml/min; Glucose 103 mg/dL (74-106); Potassium 3.4 mmol/L (3.5-5.1); Sodium Level 141 mmol/L (136-145)
[2023-04-25 18:04] LABS: Color, Urine Yellow (Yellow); Glucose, Dipstick Normal (Normal); Ketone-Dipstick Negative (Negative); Leukocyte Esterase-Dipstick Negative /ul (Negative); Nitrite-Dipstick Negative (Negative); Occult Blood-Urine 250 /ul (Negative); Protein-Dipstick 15 mg/dl (Negative); Specific Gravity, Urine 1.015 (1.002-1.030); Urine Bilirubin Dipstick Negative (Negative); Urine Clarity Clear (Clear); Urine Urobilinogen Normal (Normal)
[2023-04-25 18:32] LABS: Red Blood Cells-Urine 5-10 SEEN /hpf (0-5); Squamous Epithelial Cells - UA 0-5 SEEN /hpf (5-10)
[2023-04-25] MEDS: Lisinopril 10 MG Tablet PO (18:49)
[2023-04-25 18:52] VITALS: BP 163/93
== END 2023-04-25 18:52 | disposition home or self-care (01) ==
PROVIDERS: Emergency Provider Emergency Medicine; PCP Physician Assistant; Visit Provider Emergency Medicine
DX: I10 Essential (primary) hypertension (principal); R20.2 Paresthesia of skin; R31.9 Hematuria, unspecified; R80.9 Proteinuria, unspecified; R51.9 Headache, unspecified
CPT/HCPCS: 70450; 80048; 81001; 93005; 99284; A4216

== ENCOUNTER 2024-03-15 19:55 | Emergency (ER) | payer BC, SELFPAY ==
[2024-03-15 19:56] VITALS: BP 204/113; PULSE 78; RESP 18; TEMP 36.6; O2SAT 99; BMI 32.9
[2024-03-15 20:09] LABS: Mucous, Urine 0 SEEN /hpf (<or=2+)
[2024-03-15 20:11] LABS: Color, Urine Yellow (Yellow); Glucose, Dipstick Normal (Normal); Ketone-Dipstick Negative (Negative); Leukocyte Esterase-Dipstick 25 /ul (Negative); Nitrite-Dipstick Negative (Negative); Occult Blood-Urine 250 /ul (Negative); Protein-Dipstick 30 mg/dl (Negative); Urine Bilirubin Dipstick Negative (Negative); Urine Clarity Cloudy (Clear); Urine Urobilinogen Normal (Normal)
[2024-03-15 20:25] LABS: Red Blood Cells-Urine > 100 SEEN /hpf (0-5); Squamous Epithelial Cells - UA 5-10 SEEN /hpf (5-10); White Blood Cells 0-5 SEEN /hpf (0-5)
[2024-03-15 20:26] LABS: Bacteria 1+ /hpf (None Seen)
[2024-03-15 21:15] LABS: Absolute Lymphocyte Count 2.98 X10^3/uL (0.83-4.51); Absolute Neutrophil Count 9.8 X10^3/uL (2.0-7.7); Basophil# 0.04 X10^3/uL; Basophil% 0.3 % (0-1); Eosinophil# 0.19 X10^3/uL; Eosinophils% 1.4 % (0-5); Hematocrit 44.4 % (37-47); Hemoglobin 14.5 g/dL (12.0-15.0); Lymphocyte # 2.98 X10^3/ul (0.83-4.51); Lymphocyte % 21.7 % (19-41); Mean Corp Hgb Conc 32.7 g/dL (32-36); Mean Corpuscular Hgb 29.3 pg (27.0-32.0); Mean Corpuscular Volume 89.7 fL (81-99); Mean Platelet Vol. 10.5 fl (6.2-12.0); Monocyte# 0.66 X10^3/uL; Monocyte% 4.8 % (0-10); NRBC Flagged by Analyzer 0 % (0-5); Neutrophil # 9.78 X10^3/uL (2.7-7.7); Neutrophil % 71.4 % (47-70); Platelet Count 279 K/mm3 (150-450); RBC Distribution Width CV 12.5 % (11.6-14.6); RBC Distribution Width SD 40.8 fl (35.1-43.9); Red Blood Count 4.95 M/mm3 (4.2-5.4); White Blood Count 13.7 K/mm3 (4.4-11.0)
[2024-03-15 21:16] LABS: POSITIVE COUNT NO; POSITIVE DIFFERENTIAL NO; POSITIVE MORPHOLOGY NO
[2024-03-15 21:35] LABS: ALB/GLOB Ratio 0.9 RATIO (0.9-2.4); AST(SGOT) 18 U/L (15-37); Alanine Aminotransfer ALT/SGPT 23 U/L (13-56); Albumin, Serum 3.7 g/dL (3.2-5.0); Alkaline Phosphatase 86 U/L (45-117); Anion Gap 6 (5-15); BUN 19 mg/dL (7-18); BUN/Creat Ratio 20.4 RATIO (10-20); Calcium,Total 9.3 mg/dL (8.5-10.1); Chloride 106 mmol/L (98-107); Creatinine, Serum 0.93 mg/dL (0.55-1.02); EST Glomerular Filtration Rate 70 mL/min (>60); Est Glom Filt Rate - Afr Amer 84 mL/min (>60); Globulin 3.9 g/dL (2.2-4.2); Glucose 99 mg/dL (74-106); Potassium 4.1 mmol/L (3.5-5.1); Protein, Total 7.6 g/dL (6.4-8.2); Sodium Level 139 mmol/L (136-145)
[2024-03-15 22:12] VITALS: BP 181/106; PULSE 87; RESP 16; TEMP 36.5; O2SAT 97
--- NOTE | 2024-03-15 22:48 | EDS_ITS ---
HPI History of Present Illness Chief Complaint: Flank Pain Detail of Chief Complaint: Right flank pain Informant: patient Narrative Narrative: Patient presents with right flank pain that started initially about 5 days ago. Patient has had intermittent pain throughout the week. 4 days ago she went to urgent care and was told she might have a UTI so she was started on Macrobid and she took 2 doses of it. Patient also had an ultrasound at that time and they called her and told her she had an inflamed right ureter and the follow-up with urology. Patient describes some dysuria. She has had some hematuria. She denies fevers or chills or sweats. No history of kidney stones. Currently rates the pain a 7 out of 10. [facility] Medical History (Updated 03/16/24 @ 00:[address] Jovany Marte DO) HTN (hypertension) COVID-19 Asthma Home Medications ?Medication ?Instructions ?Recorded ?Last Taken ?Type amlodipine 10 mg tablet 10 mg PO DAILY 05/08/21 Unknown History metoprolol succinate 50 mg 50 mg PO DAILY 03/15/24 Unknown History tablet,extended release 24 hr hydrocodone-acetaminophen 5-325mg 1 tab PO Q4H PRN PRN Pain 2 days 03/16/24 Unknown Rx 5mg-325mg #10 TABLETS naproxen 500 mg tablet (Naprosyn) 500 mg PO BID PRN pain #20 tabs 03/16/24 Unknown Rx Allergy/AdvReac Type Severity Reaction Status Date / Time pineapple Allergy Intermediate Hives Verified 03/15/24 19:56 Social History (Updated 04/25/23 @ 16:[address] Naeem Ortega MD) household members: spouse and children Smoking Status: Never smoker substance use type: does not use ROS ROS ED Review of Systems ROS Unobtainable: other Constitutional Constitutional ED: Reports lethargy; Denies chills, fever(s), sweats or weight loss Eyes Eyes: Denies blurry vision, change in vision or diplopia ENT ENT ED: Denies rhinorrhea or sore throat Cardiovascular Cardiovascular: Denies chest pain, orthopnea or racing heartbeat Respiratory/Chest Respiratory/Chest: Denies cough, dyspnea, dyspnea on exertion, orthopnea or sputum Gastrointestinal Gastrointestinal: Reports abdominal pain; Denies diarrhea, nausea or vomiting Genitourinary Genitourinary ED: Reports dysuria, hematuria and urinary frequency Musculoskeletal Musculoskeletal: Reports back pain; Denies arthralgias, myalgias or neck pain Integumentary Denies abscess, Abrasions or rash Neurologic Neurologic: Denies headache(s) or weakness Psychiatric Psychiatric: Denies anxiety, depression or suicidal thoughts Endocrine Endocrinology: Denies polydipsia, polyphagia or polyuria Hematologic/Lymphatic Hematologic/Lymphatic: Denies easy bleeding, easy bruising or lymphadenopathy Allergic/Immunologic Allergic/Immunologic ED: Denies mouth swelling, tongue swelling or urticaria EXAM Physical Exam Const Vital Signs: 03/15/24 19:56 03/15/24 22:12 Temperature 97.9 F 97.7 F L Temperature Source Temporal Oral Pulse Rate 78 87 Respiratory Rate 18 16 Blood Pressure 204/113 H 181/106 H Blood Pressure Mean 143 131 Pulse Ox 99 97 Oxygen Delivery Method Room Air Room Air Positive well nourished and well developed General Appearance ED: well developed and NAD HEENT Reports TM's clear and moist mucous membranes normocephalic and atraumatic; Negative for trauma or tenderness Tympanic Membrane ED: Yes TM's clear Eyes PERRL and EOMs intact bilaterally General Eye ED: Negative for pale conjunctiva or scleral icterus Neck no lymphadenopathy, supple and no JVD General: Negative for tenderness Chest Wall inspection of chest normal and palpation of chest normal Chest: Negative for tenderness Resp normal respiratory effort and clear to auscultation bilaterally Effort and Inspection: Negative for respiratory distress or pain with movement Auscultation: Negative for rhonchi, wheezes or diminished lung sounds Cardio regular rate, regular rhythm, S1 normal heart sound, S2 normal heart sound and no murmurs Peripheral Pulses: pulses 2+ throughout GI normal to inspection, nondistended, normoactive bowel sounds, soft to palpation, non-tender and no masses GI Narrative: Tenderness palpation over right lower quadrant with some guarding. There is no rebound, rigidity, or peritoneal signs. Back/Spine no thoracic nor lumbar tenderness Back/Spine Narrative: Mild CVA tenderness on the right. Extremity normal to inspection General Extremety ED: Negative for edema General Extremity: Negative for edema Neuro oriented x3, CN's II-XII intact bilaterally, no sensory deficits noted and gait normal Sensorium / Orientation: awake, alert, oriented to person, oriented to place and oriented to time Motor Exam: strength 5/5 throughout and strength abnormal Psych mental status grossly normal Skin no rashes or lesions noted and no wounds MDM MDM MDM Narrative Medical decision making narrative: Patient presents with right flank pain and hematuria. In the differential would be UTI versus kidney stone or other acute intra-abdominal process. IV line established. Patient was medicated with Toradol as well as morphine and Zofran and her pain resolved. CBC with differential count of 13.7 with hemoglobin 14.5 and platelet count 279. Chemistries unremarkable. Urinalysis positive for red blood cells without signs of infection. hCG was negative. CT scan of the abdomen pelvis showed a 7 mm calculus in the bladder consistent with a recently passed stone and a right sided hydroureter ureter. Discussed results with patient. Will send her home with urine strainers. She will be given a prescription for pain medicine for home. Advised to follow-up with her primary care physician or I will give her urology follow-up. Lab Data Attestation: I reviewed the patient's lab results. Labs: Laboratory Results - last 24 hr 03/15/24 03/15/24 03/15/24 20:00 21:03 23:13 WBC 13.7 H RBC 4.95 Hgb 14.5 Hct 44.4 MCV 89.7 MCH 29.3 MCHC 32.7 RDW Std Deviation 40.8 RDW Coeff of Bruce 12.5 Plt Count 279 MPV 10.5 Immature Gran % (Auto) 0.400 Neut % (Auto) 71.4 H Lymph % (Auto) 21.7 Moffat % (Auto) 4.8 Eos % (Auto) 1.4 Baso % (Auto) 0.3 Absolute Neuts (auto) 9.8 H Absolute Lymphs (auto) 2.98 Nucleated RBC % 0 Sodium 139 Potassium 4.1 Chloride 106 Carbon Dioxide 27.0 Anion Gap 6 BUN 19 H Creatinine 0.93 Estim Creat Clear Calc 92.50 Est GFR (MDRD) Af Amer 84 Est GFR (MDRD) Non-Af 70 BUN/Creatinine Ratio 20.4 H Glucose 99 Calcium 9.3 Total Bilirubin 0.40 AST 18 ALT 23 Alkaline Phosphatase 86 Total Protein 7.6 Albumin 3.7 Globulin 3.9 Albumin/Globulin Ratio 0.9 Serum , Qual NEGATIVE Urine Color Yellow Urine Clarity Cloudy Urine pH 6.0 Ur Specific [place] 1.020 Urine Protein 30 H Urine Glucose (UA) Normal Urine Ketones Negative Urine Occult Blood 250 H Urine Nitrite Negative Urine Bilirubin Negative Urine Urobilinogen Normal Ur Leukocyte Esterase 25 H Urine RBC > 100 SEEN Urine WBC 0-5 SEEN Ur Squamous Epith Cells 5-10 SEEN Urine Bacteria 1+ Urine Mucus 0 SEEN Radiography Diagnostic Testing: Clinical Impression(s) from Imaging Studies Abdomen/Pelvis CT 03/15/24 22:50 IMPRESSION: Right hydronephrosis with probable recent passage of the 7 mm calculus into the bladder lumen. Correlate to exclude ascending UTI. Electronically Signed: Richard Martinez MD at 0:12 EDT , Discharge Plan Triage Chief Complaint: Flank Pain ED Provider: Jovany Marte Dx/Rx/DC Orders Clinical Impression: Urolithiasis Instructions: ED Kidney Stone with Pain Prescriptions: New hydrocodone-acetaminophen 5-325 mg tablet 1 tab PO Q4H PRN PRN (Reason: Pain) 2 Days Qty: 10 0RF naproxen [Naprosyn] 500 mg tablet 500 mg PO BID PRN (Reason: pain) Qty: 20 0RF No Action amlodipine 10 mg tablet 10 mg PO DAILY metoprolol succinate 50 mg tablet extended release 24 hr 50 mg PO DAILY Primary Care Provider: Geronimo Nava Referrals: Hilda Moran MD [Med Staff - Active Staff] - 3-5 Days Geronimo Nava PA [Primary Care Provider] - Print Language: Irish Disposition Disposition: Home, Self Care
--- NOTE | 2024-03-15 22:50 | CT_ITS ---
INDICATION: right flank pain EXAMINATION: CT ABDOMEN AND PELVIS WITHOUT CONTRAST - CT Abdomen And Pelvis W/O Contrast Injection TECHNIQUE: Helically acquired images were obtained of the abdomen and pelvis without oral or IV contrast. A radiation dose optimization technique was used for this scan. IV Contrast dosage and agent: None. Oral contrast: None. COMPARISON: None. FINDINGS: LOWER CHEST: Lung bases are clear. LIVER: No concerning focal mass. GALLBLADDER AND BILIARY TREE: No calcified gallstones. No gallbladder distension or wall edema. No intra- or extrahepatic biliary ductal dilation. PANCREAS: No focal cystic or solid mass. SPLEEN: Normal size without focal cystic or solid mass. ADRENAL GLANDS: No nodules. KIDNEYS AND URETERS: Nephrolithiasis. Right hydronephrosis. 7 mm calculus in the bladder lumen near the right ureteral orifice. PERITONEUM: No ascites or free air. BOWEL: Normal appendix. No stomach or bowel distension. No focal inflammatory change. LYMPH NODES: No enlarged mesenteric or retroperitoneal lymph nodes. VESSELS: Aorta is non-dilated. REPRODUCTIVE ORGANS: No pelvic masses. ABDOMINAL WALL: No discrete abdominal or pelvic wall hernia. BONES: Unremarkable. CT/Abdomen/Pelvis without Cont IMPRESSION: Right hydronephrosis with probable recent passage of the 7 mm calculus into the bladder lumen. Correlate to exclude ascending UTI. Electronically Signed: Richard Martinez MD at 0:12 EDT ,
[2024-03-15] MEDS: Morphine 4 MG/ML Syringe IV (23:03)
[2024-03-15] MEDS: Ondansetron 4 MG/2 ML Vial IV (23:03)
[2024-03-15] MEDS: Ketorolac 30 MG/ML Syringe IV (23:03)
[2024-03-15 23:28] LABS: Internal QC Validated? YES +Cl - CLEAR BKGD; Pregnancy, Serum, hCG Quali. NEGATIVE Negative; Record Kit Lot#, Serum Preg. 869294
[2024-03-16 00:43] VITALS: BP 153/93; PULSE 75; RESP 18; TEMP 36.8; O2SAT 95
== END 2024-03-16 00:45 | disposition home or self-care (01) ==
PROVIDERS: Emergency Provider Emergency Medicine; PCP Physician Assistant; Visit Provider Emergency Medicine
DX: N21.0 Calculus in bladder (principal); I10 Essential (primary) hypertension; R10.9 Unspecified abdominal pain; Z79.899 Other long term (current) drug therapy
CPT/HCPCS: 74176; 80053; 81001; 84703; 85025; 96374; 96375; 99283; A4216; J2405

== ENCOUNTER 2025-03-12 09:20 | Day surgery (SDC) | payer BC, SELFPAY ==
--- NOTE | 2025-03-09 15:11 | NURSING ---
PAT DONE TODAY. PT NOTED EYE RED "LIKE A BLOOD VESSEL BROKE" PT HAS BEEN HAVE BP FLUCTUATIONS, BETWEEN 130-170S DIASTOLIC. DR GREY OFFICE AWARE. PT HAS PREOP APPT 03/10.
--- NOTE | 2025-03-09 22:04 | PAT.ANESEVAL ---
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 When Was Last Pacemaker Check QUESTION #4 FULL TEXT: You/Your Family Experience fever (hyperthermia) with Anesthesia Last Oral Intake Last Oral intake: Last Oral Intake NPO since Meds taken in AM with sips of water? Meds patient instructed to take am of surgery PONV PONV - leisure studies professor: PONV - leisure studies professor Female Yes 03/09/25 08:51 HX of Motion Sickness No 03/09/25 08:51 HX of N/V After Surgery No 03/09/25 08:51 Non-Smoker Yes 03/09/25 08:51 Duration of Surgery greater No 03/09/25 08:51 than 60 minutes Number of Risk Factors 2 03/09/25 08:51 PONV Score Moderate Risk 03/09/25 08:51 Height & Weight Height & Weight: Anesthesia: Height & Weight Height 5 ft 7 in 03/15/24 19:56 Respiratory Assessment Respiratory Assessment - leisure studies professor: Respiratory Tract Infection Hx - leisure studies professor Hx Respiratory Tract Infection No 03/09/25 08:51 STOP Sleep Apnea STOP Sleep Apnea - leisure studies professor: STOP Sleep Apnea - leisure studies professor Hx Hypertension Yes 03/09/25 08:51 Hx Sleep Apnea No 03/09/25 08:51 CPAP BIPAP Do you snore loudly (louder No 03/09/25 08:51 than talking or can be heard Do you often feel tired/ No 03/09/25 08:51 fatigued/ sleepy during daytime? Has anyone observed you stop No 03/09/25 08:51 breathing during sleep? STOP Results Negative 03/09/25 08:51 QUESTION #5 FULL TEXT : Do you snore loudly (louder than talking or can be heard through closed doors)? 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 Specify any problems Hx of Preganancy in last 3 No 03/09/25 08:51 Months Nurse Filling Out Transfusion [email or web address] 03/09/25 08:51 & Questions: Date: 03/09/25 03/09/25 08:51 Time: 08:56 03/09/25 08:51 Patient unable to answer at this time (ie. confused, unrespo /Reproduction History /Reproductive History - leisure studies professor: /Reproductive Hx- leisure studies professor Hx Now No 03/09/25 08:51 Gestational Age (in weeks): EDC: Hx Hx Para Hx Section SAB No 03/09/25 08:51 PFS Medical History (Updated 03/09/25 @ 09:06 by Marlo De Jesus) Wears glasses Wears contact lenses Back pain Injury of back Cardiology follow-up encounter HTN (hypertension) COVID-19 Asthma Home Medications Medication Instructions Recorded Last Taken Type amlodipine 10 mg tablet 10 mg PO DAILY 05/08/21 Unknown History metoprolol succinate 50 mg 50 mg PO DAILY 03/15/24 Unknown History tablet,extended release 24 hr albuterol sulfate 90 mcg/actuation 2 inh inhalation Q4H PRN shortness 03/09/25 Unknown History breath activated powder inhaler of breath methocarbamol 500 mg tablet 500 mg PO TID PRN PRN pain 03/09/25 Unknown History Allergy/AdvReac Type Severity Reaction Status Date / Time pineapple Allergy Intermediate Hives Verified 03/09/25 08:49 Surgical History H/O discectomy Social History (Updated 04/25/23 @ 16:[address] Naeem Ortega MD) household members: spouse and children Smoking Status: Never smoker substance use type: does not use Audit: Pertinent Findings Pertinent Findings EKG Perinent findings: 04/25/2023. Normal sinus rhythm. Consult pertinent findings: 05/09/2021. Dr. Paz. 1. Atrial fibrillation-patient had onset of A-fib at the same time as his COVID 19th infection. Patient appears hemodynamically stable at this time. Patient is anticoagulated due to underlying condition. Start metoprolol 50 mg twice daily. Recommendation Anesthesia Recommendation Anesthesia recommendation: OPTIMIZED for anesthesia
[2025-03-12] VITALS (9 sets, daily range): BP systolic 112–129; BP diastolic 68–85; PULSE 62–76; RESP 16–20; TEMP 36.3–36.6; O2SAT 93–98; BMI 33.1
[2025-03-12 09:56] LABS: Internal QC Validated? YES +Cl - CLEAR BKGD; Pregnancy, Urine Negative Negative; Record Kit Lot#,Urine Preg 980607
[2025-03-12] MEDS: Lactated Ringers 1,000 ML 15 ML IV (10:06)
[2025-03-12] MEDS: Ketorolac 30 MG/ML Syringe IV (10:06)
--- NOTE | 2025-03-12 10:31 | PRE.ANES_ITS ---
ASA Classification* ASA Classification ASA Classification: 2 Assessment & Plan Anesthesia* Anesthesia Assessment Anesthesia Assessment: Discussed sedation and/or anesthesia options, risks, benefits, and alternatives with patient/parents/legal guardian/POA. Questions invited. The patient/parents/legal guardian/POA seems to understand and agrees to proceed with anesthesia plan. Reviewed the physical assessment, medical history, allergy history and patient home medications list prior to surgery/procedure/anesthetic and documented any changes. Performed airway and anesthesia risk assessments. Anesthesia Type Anesthesia Type: MAC Anesthesia Focused Assessment* Temperature: 97.3 F Pulse Rate: 64 Blood Pressure: 129/79 Respiratory Rate: 16 Pulse Ox: 98 Airway Assessment Mouth opens: >3 cm Mallampati Score: II Labs Anesthesia Preop lab: CBC WBC, (4.4-11.0) 13.7 K/mm3 H 03/15/24, 21:03 RBC, (4.2-5.4) 4.95 M/mm3 03/15/24, 21:03 Hgb, (12.0-15.0) 14.5 g/dL 03/15/24, 21:03 Hct, (37-47) 44.4 % 03/15/24, 21:03 Plt Count, (150-450) 279 K/mm3 03/15/24, 21:03 CHEMISTRY Potassium, (3.5-5.1) 4.1 mmol/L 03/15/24, 21:03 Sodium, (136-145) 139 mmol/L 03/15/24, 21:03 Magnesium, (1.6-2.6) 2.2 mg/dL 05/09/21, 02:35 Phosphorus, (2.5-4.9) 2.7 mg/dL 05/09/21, 02:35 BUN, (7-18) 19 mg/dL H 03/15/24, 21:03 Creatinine, (0.55-1.02) 0.93 mg/dL 03/15/24, 21:03 Glucose, (74-106) 99 mg/dL 03/15/24, 21:03 COAG PT, (11.7-14.9) 13.2 SECONDS 05/09/21, 02:35 Urine Test Negative Negative Today, 09:45 Pre-Assessment Diagnosis/Proposed Procedure Planned Operative Procedure(s): HYSTEROSCOPY DILATION AND CURRETTAGE Anesthesia History 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 When Was Last Pacemaker Check QUESTION #4 FULL TEXT: You/Your Family Experience fever (hyperthermia) with Anesthesia Last Oral Intake Last Oral intake: Last Oral Intake NPO since 23:00 03/12/25 09:53 Meds taken in AM with sips of No 03/12/25 09:53 water? Meds patient instructed to take am of surgery PONV PONV - nut processing supervisor: PONV - nut processing supervisor Female Yes 03/09/25 08:51 HX of Motion Sickness No 03/09/25 08:51 HX of N/V After Surgery No 03/09/25 08:51 Non-Smoker Yes 03/09/25 08:51 Duration of Surgery greater No 03/09/25 08:51 than 60 minutes Number of Risk Factors 2 03/09/25 08:51 PONV Score Moderate Risk 03/09/25 08:51 Height & Weight Height & Weight: Anesthesia: Height & Weight Height 5 ft 7 in 03/12/25 09:53 Weight: 96 kg 03/12/25 09:53 Body Mass Index (BMI) 33.1 03/12/25 09:53 Respiratory Assessment Respiratory Assessment - nut processing supervisor: Respiratory Tract Infection Hx - nut processing supervisor Hx Respiratory Tract Infection No 03/09/25 08:51 STOP Sleep Apnea STOP Sleep Apnea - nut processing supervisor: STOP Sleep Apnea - nut processing supervisor Hx Hypertension Yes 03/09/25 08:51 Hx Sleep Apnea No 03/09/25 08:51 CPAP BIPAP Do you snore loudly (louder No 03/09/25 08:51 than talking or can be heard Do you often feel tired/ No 03/09/25 08:51 fatigued/ sleepy during daytime? Has anyone observed you stop No 03/09/25 08:51 breathing during sleep? STOP Results Negative 03/09/25 08:51 QUESTION #5 FULL TEXT : Do you snore loudly (louder than talking or can be heard through closed doors)? 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 Specify any problems Hx of Preganancy in last 3 No 03/09/25 08:51 Months Nurse Filling Out Transfusion [email or web address] 03/09/25 08:51 & Questions: Date: 03/09/25 03/09/25 08:51 Time: 08:56 03/09/25 08:51 Patient unable to answer at this time (ie. confused, unrespo /Reproduction History /Reproductive History - nut processing supervisor: /Reproductive Hx- nut processing supervisor Hx Now No 03/09/25 08:51 Gestational Age (in weeks): EDC: Hx Hx Para Hx Section SAB No 03/09/25 08:51 Active Medications Active Medications: Current Medications Generic Name Dose Route Start Last Admin Trade Name Shon PRN Reason Stop Dose Admin Acetaminophen 1,000 mg 03/12/25 11:30 03/12/25 10:06 Acetaminophen 500 Mg Tablet PO 03/12/25 11:31 1,000 mg PREOP ONE Administration Lactated Ringer's 1,000 mls @ 15 mls/hr 03/12/25 09:45 03/12/25 10:06 IV 15 mls/hr .Q48H SUJATA Administration Ketorolac Tromethamine 30 mg 03/12/25 11:30 03/12/25 10:06 Ketorolac 30 Mg/Ml Syringe IV 03/12/25 11:31 30 mg PREOP ONE Administration PFSH Medical History Wears glasses Wears contact lenses Back pain Injury of back Cardiology follow-up encounter HTN (hypertension) COVID-19 Asthma Home Medications Medication Instructions Recorded Last Taken Type amlodipine 10 mg tablet 10 mg PO DAILY 05/08/2102/24 22:30 History metoprolol succinate 50 mg 50 mg PO DAILY 03/15/24 22:30 History tablet,extended release 24 hr albuterol sulfate 90 mcg/actuation 2 inh inhalation Q4 H PRN shortness 03/09/25 Unknown History breath activated powder inhaler of breath methocarbamol 500 mg tablet 500 mg PO TID PRN PRN pain 03/09/25 Unknown History Allergy/AdvReac Type Severity Reaction Status Date / Time pineapple Allergy Intermediate Hives Verified 03/12/25 09:51 Surgical History H/O discectomy Social History (Updated 04/25/23 @ 16:[address] Naeem Ortega MD) household members: spouse and children Smoking Status: Never smoker substance use type: does not use Review of Systems (Anesthesia) ROS Narrative System reviewed and no additional complaints, except as documented.
--- NOTE | 2025-03-12 11:30 | POL_PTH ---
PATIENT: NICK VILLALOBOS LOC: [facility] [place] U#:[id number] AGE/SX: 44/F ROOM: RE03/12/[address]: Dr. Alisson Cole MD : 1980 BED: DIS: 03/12/2025 SPEC #: [id number] RECD: 03/12/25 14:09 STATUS: GREGORY REMari #: [id number] RADHA: 03/12/25 11:[address]: Alisson Cole DEPT: SURGICAL PATHOLOGY RECD BY: Pedrito Evans ENTERED: 03/12/25 14:55 SP TYPE: Polyp OTHR DR: Jamila Barragan, [facility] Tissues: A - Uterine cervix, NOS Procedures: Surgery Specimen Level IV HEADER OPERATION: Hysteroscopy, D&C PRE-OP DIAGNOSIS: Uterine polyp, menorrhagia with regular cycle TISSUE SUBMITTED: A- Uterine polyp and curettings MICROSCOPIC DIAGNOSIS A. Endometrium, curettage: * Endometrial hyperplasia without atypia. MICROSCOPIC DESCRIPTION Slides are reviewed. GROSS DESCRIPTION A. Received in formalin labeled with the patient's name and date of . Designated as "uterine polyp and curettings" is a 7.0 x 3.0 x 0.7 cm aggregate of kenyon-pink irregular tissue fragments. Entirely submitted in 4 cassettes. [place] 03/12/2025 CPT:19334
[2025-03-12] MEDS: Lactated Ringers 1,000 ML 1000 ML IV (11:48)
[2025-03-12] MEDS: Midazolam 2 MG/2 ML Syringe IV (11:48)
[2025-03-12] MEDS: fentaNYL 100 MCG/2 ML Ampul IV (11:53)
[2025-03-12] MEDS: Lidocaine 1% (5 ml sdv) 5 ML Vial IV (11:53)
[2025-03-12] MEDS: Lidocaine 1% /Epi 1:100 (50ml) 50 ML VIAL (12:07)
--- NOTE | 2025-03-12 12:28 | PCM.OPRPT ---
Operative Report (Standard) Operative Information Date of Procedure: 03/12/25 Pre-Operative Diagnosis: AUB, endometrial polyp Post-Operative Diagnosis: same Surgery/Procedure Performed: Hysteroscopy D&C with polyp resection extractor and wringer operator: Yes Fiscal Technician: Mckenna Calderón MS4 Tasks completed by sampler first: Retracting Additional food and nutrition services assistant?: No Type of Anesthesia: MAC/Supplemental/Local RN Documented Start/Stop Times: Operation Date: 03/12/25 11:30 Case Time Into Pre-Op 03/12/25 09:35 Anesthesia Start 03/12/25 11:48 Into Room 03/12/25 11:48 Procedure Start 03/12/25 12:00 Procedure End 03/12/25 12:23 Procedure Start Time: 12:00 Procedure Stop Time: 12:23 Select all DRAINS/GRAFTS/IMPLANTS that apply: None Estimated Blood Loss: 10 Fluids Replaced: 700 cc LR Specimen collected: Yes Description of specimen(s) removed: endometrial curettings and polyp Description of surgery: The patient was taken to the OR where she was prepped and draped in dorsal lithotomy position. The weighted speculum was placed in the vagina and the anterior lip of the cervix was grasped with a single-tooth tenaculum. A paracervical block was administered with 1% lidocaine with 1-100,000 epinephrine solution. The cervix was dilated serially with Hegar dilators. The SYmphion hysteroscope was placed into the uterine cavity and the above findings were noted. Bilateral tubal ostia were identified. The hysteroscope was removed. The Symphion resection device was readied and inserted. Visual D&C was done of the endometrial cavity. The polyp in the posterior wall was resected in its entirety. No other focal abnormalities were noted.. The instruments were removed from the vagina. The specimen was handed off and sent to pathology. All sponge and needle counts were correct. Vaginal sweep was performed by me. The patient was awakened and taken to the recovery room in stable condition. Hysteroscopic fluid deficit was calculated be 500 cc of normal saline Surgical Findings: lush endometrium, normal cervix and vagina, polypoid appearing lesion posterior fundus, retroverted uterus Complications Complications: No Admit VTE Documentation VTE Present on Admission: No VTE Mechan Device Prophylaxis: SCD's VTE Pharm Prophylaxis ordered?: No Reason prophylaxis not ordered: Procedure Not Indicated
--- NOTE | 2025-03-12 12:34 | PCM.POST.ANE ---
Anesthesia: Postop Eval I Current Vital Signs Temperature: 97.9 F Pulse Rate: 71 Blood Pressure: 113/68 Respiratory Rate: 20 Pulse Ox: 95 Oxygen Delivery Method: Room Air Assessment Airway patent: Yes Spontaneous unlabored respirations: Yes Mental status: Awake and Calm nausea: No Vomiting: No Anesthesia Complication: No Fluid Hydration Crystalloid volume administer (ml): 600 Total IV fluid infused: 600 Progress Note Anesthesia document: Postop Eval 1 completed: Yes
--- NOTE | 2025-03-12 13:16 | POSTOPAN2_ITS ---
Anesthesia Postop Eval I Sum Postop Eval Completion status Anesthesia document: Postop Eval 1 completed: Yes Anesthesia Postop Eval I Summary Anesthesia Postop Eval I Summary: Anesthesia Postop Eval I: Assessment Summary Airway patent Yes 03/12/25 12:35 [email or web address] Spontaneous unlabored Yes 03/12/25 12:35 [email or web address] respirations Mental status Awake,Calm 03/12/25 12:35 [email or web address] nausea No 03/12/25 12:35 [email or web address] Vomiting No 03/12/25 12:35 [email or web address] Anesthesia Postop Eval I: Fluid Summary Crystalloid volume administer 600 03/12/25 12:35 [email or web address] (ml) Colloids volume administered ( ml) Blood Product volume administered (ml) Total IV fluid infused 600 03/12/25 12:35 [email or web address] Anesthesia Postop Eval I: Summary Notes Anesthesia Complication No 03/12/25 12:35 [email or web address] Anesthesia Complication Comment: Post-operative progress note Anesthesia: Postop Eval II Evaluation Mental status: Awake Pain Level: 0 nausea: No Vomiting: No
--- NOTE | 2025-03-12 13:16 | PCM.POSTANE2 ---
Anesthesia Postop Eval I Sum Postop Eval Completion status Anesthesia document: Postop Eval 1 completed: Yes Anesthesia Postop Eval I Summary Anesthesia Postop Eval I Summary: Anesthesia Postop Eval I: Assessment Summary Airway patent Yes 03/12/25 12:35 [email or web address] Spontaneous unlabored Yes 03/12/25 12:35 [email or web address] [email or web address] [email or web address] respirations Mental status Awake,Calm 03/12/25 12:35 [email or web address] [email or web address] nausea No 03/12/25 12:35 [email or web address] [email or web address] Vomiting No 03/12/25 12:35 [email or web address] Anesthesia Postop Eval I: Fluid Summary Crystalloid volume administer 600 03/12/25 12:35 [email or web address] (ml) Colloids volume administered ( ml) Blood Product volume administered (ml) Total IV fluid infused 600 03/12/25 12:35 [email or web address] Anesthesia Postop Eval I: Summary Notes Anesthesia Complication No 03/12/25 12:35 [email or web address] Anesthesia Complication Comment: Post-operative progress note Anesthesia: Postop Eval II Evaluation Mental status: Awake Pain Level: 0 nausea: No Vomiting: No
--- NOTE | 2025-03-12 14:02 | PCM.DC ---
Discharge Instructions DC O2, CPAP, BIPAP needs Home O2 Discharge instructions: No Dressing / Incision Discharge Activity: May Drive (03/13) and May Take a Tub Bath (in 1 week) Return to work on:: 03/15/25 May shower in (days): 1 May resume sexual activity in: 1 week Lifting Restrictions: none Dressing / Incision Call your doctor if your incision/area has: Sudden Increased Bleeding and Foul Smelling Discharge Call your doctor if you observe: Fever of 101 or Higher and Using more than 1 pad per hour (for 2 hrs in a row) Follow Up Care Please Follow Up With: Alisson Cole MD When: You do not need a postop appointment. Call [phone] or send a [employer] message to make an appointment or with any concerns. Test Results: Test results from this visit will be discussed in further detail at your follow-up appointment, if applicable. Discharge Plan Admission Primary Reason for Your Visit: Hysteroscopy D&C with polyp resection Attending Provider: Alisson Cole Primary Care Provider: Jamila Barragan Instructions Print Language: [place] Discharge Orders/Prescriptions Prescriptions: No Action amlodipine 10 mg tablet 10 mg PO DAILY metoprolol succinate 50 mg tablet extended release 24 hr 50 mg PO DAILY albuterol sulfate 90 mcg/actuation aerosol powdr breath activated 2 inh inhalation Q4H PRN (Reason: shortness of breath) methocarbamol 500 mg tablet 500 mg PO TID PRN PRN (Reason: pain) Referrals / Follow Up: Geronimo Nava PA [Non-Staff, Medical] Disposition Disposition (needs filled in before D/C Order can be placed): Home, Self Care
== END 2025-03-12 14:08 | disposition home or self-care (01) ==
LOC: SDC 09:23 → AC 09:26
PROVIDERS: Anesthesiology; PCP Clinical Nurse Specialist Adult Health; Referring Provider Obstetrics & Gynecology; Visit Provider Obstetrics & Gynecology
PROC: 0UB98ZZ Excision of Uterus, Via Natural or Artificial Opening Endoscopic (ICD-10-PCS; CPT 58558; principal; 2025-03-12 11:15)
DX: N85.00 Endometrial hyperplasia, unspecified (principal); N93.9 Abnormal uterine and vaginal bleeding, unspecified; I10 Essential (primary) hypertension; J45.909 Unspecified asthma, uncomplicated; Z79.899 Other long term (current) drug therapy
CPT/HCPCS: 58558; 00952; 81025; 88305; J2405